=== PATIENT | male | born 1960 | race Caucasian/White ===

== ENCOUNTER 2021-06-26 04:32 | Observation (INO) | payer BC, SELFPAY ==
[2021-06-26] VITALS (11 sets, daily range): BP systolic 105–159; BP diastolic 53–99; PULSE 64–86; RESP 16–22; TEMP 36.6–36.9; O2SAT 88–94; BMI 40.6
--- NOTE | 2021-06-26 04:35 | XRR_ITS ---
PROCEDURE INFORMATION: Exam: XR Chest Exam date and time: 06/26/2021 4:35 AM Age: 61 years old Clinical indication: Cough and dyspnea and shortness of breath; Patient HX: Cough with SOB and dyspnea. Patient states history of cardiac valve leak. TECHNIQUE: Imaging protocol: XR of the chest. Views: 1 view. COMPARISON: No relevant prior studies available. FINDINGS: Lungs: No perihilar pulmonary edema. Patchy slight haziness laterally in the left mid lung and in the right lung base. Questionable minimal haziness laterally in the right upper lobe. No consolidation. Pleural spaces: No pneumothorax or apparent pleural fluid. Heart/Mediastinum: Cardiomegaly. Convexity of the left heart margin raising the possibility of left ventricular dilatation. No obvious left atrial enlargement. Vasculature: Descending aortic elongation. Diaphragm: Mild elevation of the right hemidiaphragm. Bones/joints: No suggestion of acute bony disease. XR/XR chest 1V portable [id number] IMPRESSION: 1. Patchy slight haziness laterally in the left mid lung and in the right lung base questionably due to minimal airspace disease and/or atelectasis. Minimal haziness in the lateral right upper lobe not excluded. 2. Cardiomegaly. Possible left ventricular dilatation. Other findings detailed above. Radiation Dose CTDIVOL = (mGy): DLP = (mGy-cm)
--- NOTE | 2021-06-26 05:09 | ED_ITS ---
Documented by User: Maryam Wakefield MD 06/26/21 05:56 HPI - General Adult General: Chief complaint: Weakness Stated complaint: weak, coughing, sob Time Seen by Provider: 06/26/21 04:37 History of Present Illness: HPI narrative: Patient is a 61-year-old male with no significant past medical history presents emergency room with complaints of cough, diarrhea, generalized weakness x3 days. Patient states that he has had chills at that time. Has not had any recent Covid test. No sick contacts around him. Patient denies any associated chest pain shortness breath, palpitation, nausea/vomiting, loss of taste/smell. Patient has no other focal complaints at this time. Onset: 3 days ago Duration:3 days Location:home Severity:mild/mderate Review of Systems Narrative: Constitutional: No fever, no chills. +generalized weakness HEENT: No vision changes CV: No chest pain, no palpitations PULM: +cough, no dyspnea. GI: No abdominal pain, -N/-V/+D. : No dysuria MSKEL: No muscle pain SKIN: No new rashes, no lesions. NEURO: No headache, no focal weakness. HEME: No visible bruises PSYCH: Normal mood PFSH ED PFSH: Medical History (Updated 06/29/21 @ 00:01 by ) Heart murmur Surgical History (Updated 06/26/21 @ 08:50 by Ajith Cesar MD) History of appendectomy Family History (Updated 06/26/21 @ 08:50 by Ajith Cesar MD) Other CAD (coronary artery disease) Diabetes Social History (Updated 10/27/19 @ 10:19 by Luna Fan LPN) Smoking and tobacco status: never smoked Alcohol intake: current Physical Exam Narrative: EXAM NARRATIVE: Head: Atraumatic Eyes: PERRL, conjunctiva without injection ENT: Mucous membrane moist NECK: Supple, ROM intact LUNGS: LCTAB, no crackles/rhonchi CV: RRR ABDOMEN: Soft, nontender in all quadrants EXTREMITY: Normal ROM SKIN: No rash or erythema NEURO: Awake and alert, no focal motor deficits PSYCH: Normal mood and affect Course Vital Signs: Vital signs: Vital Signs Temperature 98.1 F 06/28/21 13:17 Pulse Rate 68 06/28/21 13:17 Respiratory Rate 17 06/28/21 13:17 Blood Pressure 146/94 06/28/21 13:17 Pulse Oximetry 91 06/28/21 13:17 MDM - General Adult MDM Narrative: Medical decision making narrative: 61-year-old male presented to emergency room with complaints of cough, weakness, and diarrhea x3 days. Patient has not had any recent Covid test. On exam, patient is HDS. O2 sats of 90% on RA. Lungs clear to auscultation. Work-up: CBC, BMP, XR chest, Covid antigen/PCR Covid positive today. XR is consistent with mild PNa. Offered home O2 and discharge but patient declined and elected to stay. Given decadron 6mg and remdesivir Disposition: Admission Lab Data: Labs: Lab Results 06/26/21 06/26/21 06/26/21 05:18 05:18 05:18 WBC 4.8 10^3/uL 10^3/ uL (4.0-10.0) RBC 4.77 10^6/uL 10^6 /uL (4.1-5.3) Hgb 14.5 g/dL g/dL (11.7-16.6) Hct 41.3 % L % (42.0-52.0) MCV 86.6 fl fl (80-94) MCH 30.4 pg pg (28.0-34.0) MCHC 35.1 g/dL g/dL (30.0-36.0) RDW 11.9 % L % (12.1-15.1) Plt Count 154 10^3/cmm 10^3 /cmm (130-400) MPV 10.8 fL H fL (7.4-10.4) Neut % (Auto) 75.9 % % Lymph % (Auto) 18.9 % % [place] % (Auto) 4.8 % % Eos % (Auto) 0.0 % % Baso % (Auto) 0.0 % % Neut # (Auto) 3.66 10^3/uL 10^3 /uL (1.8-7.7) Lymph # (Auto) 0.9 10^3/uL 10^3/ uL (0.8-4.8) [place] # (Auto) 0.2 10^3/uL 10^3/ uL (0.2-0.9) Eos # (Auto) 0.0 10^3/uL 10^3/ uL (0.0-0.8) Baso # (Auto) 0.0 10^3/uL 10^3/ uL (0.0-0.1) Nucleated RBC % (a uto) 0 % % Nucleated RBCs # 0.0 /100WBC /100W BC D-Dimer Sodium 134 mmol/L L mmol /L (136-145) Potassium 3.3 mmol/L L mmol /L (3.5-5.1) Chloride 100 mmol/L mmol/L (98-107) Carbon Dioxide 18 mmol/L L mmol/ L (22-29) Anion Gap 19.3 H (5-19) BUN 10 mg/dL mg/dL (8-23) Creatinine 0.9 mg/dL mg/dL (0.7-1.2) GFR Calculation 85.8 mL/min L mL/ min (90-130) Glucose 113 mg/dL mg/dL (65-115) Calculated Osmolal ity 278 mOsm/kg L mOs m/kg (285-295) Calcium 7.7 mg/dL L mg/dL (8.5-10.5) C-Reactive Protein NT-Pro-B Natriuret Pep Nasal/Oral COVID-1 9 PCR Detected H SARS-CoV-2 Ag (Rap id) 06/26/21 06/26/21 06/26/21 05:18 05:18 05:18 WBC RBC Hgb Hct MCV MCH MCHC RDW Plt Count MPV Neut % (Auto) Lymph % (Auto) [place] % (Auto) Eos % (Auto) Baso % (Auto) Neut # (Auto) Lymph # (Auto) [place] # (Auto) Eos # (Auto) Baso # (Auto) Nucleated RBC % (a uto) Nucleated RBCs # D-Dimer 0.60 ug/mIFEU H u g/mIFEU (0-0.59) Sodium Potassium Chloride Carbon Dioxide Anion Gap BUN Creatinine GFR Calculation Glucose Calculated Osmolal ity Calcium C-Reactive Protein 101.2 mg/L H mg/L (0.0-4.9) NT-Pro-B Natriuret Pep Nasal/Oral COVID-1 9 PCR SARS-CoV-2 Ag (Rap id) Positive H (Negative) 06/26/21 05:18 WBC RBC Hgb Hct MCV MCH MCHC RDW Plt Count MPV Neut % (Auto) Lymph % (Auto) [place] % (Auto) Eos % (Auto) Baso % (Auto) Neut # (Auto) Lymph # (Auto) [place] # (Auto) Eos # (Auto) Baso # (Auto) Nucleated RBC % (a uto) Nucleated RBCs # D-Dimer Sodium Potassium Chloride Carbon Dioxide Anion Gap BUN Creatinine GFR Calculation Glucose Calculated Osmolal ity Calcium C-Reactive Protein NT-Pro-B Natriuret Pep 73 pg/mL pg/mL (0-125) Nasal/Oral COVID-1 9 PCR SARS-CoV-2 Ag (Rap id) Imaging Data^: Other Imaging: Radiologist's impression: [employer] [id number] ReportSigned Patient: Jaime Carson #: [id number]: 1960Acct#:[id number]/Sex: 61 / MADM Date: 06/26/21Loc: ERRoom/Bed:Attending Dr: Ordering Provider/Ordering MD: Maryam Wakefield MD Date of Service: 06/26/21 Procedure(s): XR chest 1V portable [id number] Accession Number(s): [id number] Report Number: [id number] PROCEDURE INFORMATION: Exam: XR Chest Exam date and time: 06/26/2021 4:35 AM Age: 61 years old Clinical indication: Cough and dyspnea and shortness of breath; Patient HX: Cough with SOB and dyspnea. Patient states history of cardiac valve leak. TECHNIQUE: Imaging protocol: XR of the chest. Views: 1 view. COMPARISON: No relevant prior studies available. FINDINGS: Lungs: No perihilar pulmonary edema. Patchy slight haziness laterally in the left mid lung and in the right lung base. Questionable minimal haziness laterally in the right upper lobe. No consolidation. Pleural spaces: No pneumothorax or apparent pleural fluid. Heart/Mediastinum: Cardiomegaly. Convexity of the left heart margin raising the possibility of left ventricular dilatation. No obvious left atrial enlargement. Vasculature: Descending aortic elongation. Diaphragm: Mild elevation of the right hemidiaphragm. Bones/joints: No suggestion of acute bony disease. XR/XR chest 1V portable [id number] IMPRESSION: 1. Patchy slight haziness laterally in the left mid lung and in the right lung base questionably due to minimal airspace disease and/or atelectasis. Minimal haziness in the lateral right upper lobe not excluded. 2. Cardiomegaly. Possible left ventricular dilatation. Other findings detailed above. Radiation Dose CTDIVOL = (mGy): DLP = (mGy-cm) Dictated By:Beth Mcnamara MDSigned By:Beth Mcnamara MDSigned Date/Time:06/26/21529DD/ Discharge Plan Discharge Patient Disposition: Admitted As Inpatient Admit Provider: Kira Bhatt Clinical Impression: Cough, Generalized weakness, Diarrhea, COVID Condition: Stable Discharge Diet: Advance as tolerated Discharge Activity: Resume usual activity Coding Level of Care Code ED End User Support Specialist for Chg Fwd Documented by User: Edgar Cosme DO 07/03/21 07:49 HPI - General Adult General: Chief complaint: Weakness Stated complaint: weak, coughing, sob Time Seen by Provider: 06/26/21 04:37 [facility] ED PFSH: Medical History (Updated 06/29/21 @ 00:01 by ) Heart murmur Surgical History (Updated 06/26/21 @ 08:50 by Ajith Cesar MD) History of appendectomy Family History (Updated 06/26/21 @ 08:50 by Ajith Cesar MD) Other CAD (coronary artery disease) Diabetes Social History (Updated 10/27/19 @ 10:19 by Luna Fan LPN) Smoking and tobacco status: never smoked Alcohol intake: current Course Vital Signs: Vital signs: Vital Signs Temperature 98.1 F 06/28/21 13:17 Pulse Rate 68 06/28/21 13:17 Respiratory Rate 17 06/28/21 13:17 Blood Pressure 146/94 06/28/21 13:17 Pulse Oximetry 91 06/28/21 13:17 MDM - General Adult MDM Narrative: Medical decision making narrative: Care assumed from Dr. Wakefield at change of shift. 88% on room air. After discussion with patient will go ahead and admit for Covid pneumonitis. Hospitalist made aware. Lab Data: Labs: Lab Results 06/26/21 06/26/21 06/26/21 05:18 05:18 05:18 WBC 4.8 10^3/uL 10^3/ uL (4.0-10.0) RBC 4.77 10^6/uL 10^6 /uL (4.1-5.3) Hgb 14.5 g/dL g/dL (11.7-16.6) Hct 41.3 % L % (42.0-52.0) MCV 86.6 fl fl (80-94) MCH 30.4 pg pg (28.0-34.0) MCHC 35.1 g/dL g/dL (30.0-36.0) RDW 11.9 % L % (12.1-15.1) Plt Count 154 10^3/cmm 10^3 /cmm (130-400) MPV 10.8 fL H fL (7.4-10.4) Neut % (Auto) 75.9 % % Lymph % (Auto) 18.9 % % [place] % (Auto) 4.8 % % Eos % (Auto) 0.0 % % Baso % (Auto) 0.0 % % Neut # (Auto) 3.66 10^3/uL 10^3 /uL (1.8-7.7) Lymph # (Auto) 0.9 10^3/uL 10^3/ uL (0.8-4.8) [place] # (Auto) 0.2 10^3/uL 10^3/ uL (0.2-0.9) Eos # (Auto) 0.0 10^3/uL 10^3/ uL (0.0-0.8) Baso # (Auto) 0.0 10^3/uL 10^3/ uL (0.0-0.1) Nucleated RBC % (a uto) 0 % % Nucleated RBCs # 0.0 /100WBC /100W BC D-Dimer Sodium 134 mmol/L L mmol /L (136-145) Potassium 3.3 mmol/L L mmol /L (3.5-5.1) Chloride 100 mmol/L mmol/L (98-107) Carbon Dioxide 18 mmol/L L mmol/ L (22-29) Anion Gap 19.3 H (5-19) BUN 10 mg/dL mg/dL (8-23) Creatinine 0.9 mg/dL mg/dL (0.7-1.2) GFR Calculation 85.8 mL/min L mL/ min (90-130) Glucose 113 mg/dL mg/dL (65-115) Calculated Osmolal ity 278 mOsm/kg L mOs m/kg (285-295) Calcium 7.7 mg/dL L mg/dL (8.5-10.5) C-Reactive Protein NT-Pro-B Natriuret Pep Nasal/Oral COVID-1 9 PCR Detected H SARS-CoV-2 Ag (Rap id) 06/26/21 06/26/21 06/26/21 05:18 05:18 05:18 WBC RBC Hgb Hct MCV MCH MCHC RDW Plt Count MPV Neut % (Auto) Lymph % (Auto) [place] % (Auto) Eos % (Auto) Baso % (Auto) Neut # (Auto) Lymph # (Auto) [place] # (Auto) Eos # (Auto) Baso # (Auto) Nucleated RBC % (a uto) Nucleated RBCs # D-Dimer 0.60 ug/mIFEU H u g/mIFEU (0-0.59) Sodium Potassium Chloride Carbon Dioxide Anion Gap BUN Creatinine GFR Calculation Glucose Calculated Osmolal ity Calcium C-Reactive Protein 101.2 mg/L H mg/L (0.0-4.9) NT-Pro-B Natriuret Pep Nasal/Oral COVID-1 9 PCR SARS-CoV-2 Ag (Rap id) Positive H (Negative) 06/26/21 05:18 WBC RBC Hgb Hct MCV MCH MCHC RDW Plt Count MPV Neut % (Auto) Lymph % (Auto) [place] % (Auto) Eos % (Auto) Baso % (Auto) Neut # (Auto) Lymph # (Auto) [place] # (Auto) Eos # (Auto) Baso # (Auto) Nucleated RBC % (a uto) Nucleated RBCs # D-Dimer Sodium Potassium Chloride Carbon Dioxide Anion Gap BUN Creatinine GFR Calculation Glucose Calculated Osmolal ity Calcium C-Reactive Protein NT-Pro-B Natriuret Pep 73 pg/mL pg/mL (0-125) Nasal/Oral COVID-1 9 PCR SARS-CoV-2 Ag (Rap id) Discharge Plan Discharge Patient Disposition: Admitted As Inpatient Admit Provider: Kira Bhatt Clinical Impression: Cough, Generalized weakness, Diarrhea, COVID Condition: Stable Discharge Diet: Advance as tolerated Discharge Activity: Resume usual activity Coding Level of Care Code ED End User Support Specialist for Rosendog Peyton
[2021-06-26 05:26] LABS: Hematocrit 41.3 % (42.0-52.0); Hemoglobin 14.5 g/dL (11.7-16.6); Lymphocytes # 0.9 10^3/uL (0.8-4.8); Lymphocytes % 18.9 %; Mean Corpuscular HGB Conc 35.1 g/dL (30.0-36.0); Mean Corpuscular Hemoglobin 30.4 pg (28.0-34.0); Mean Corpuscular Volume 86.6 fl (80-94); Mean Platelet Volume 10.8 fL (7.4-10.4); Monocytes # 0.2 10^3/uL (0.2-0.9); Monocytes % 4.8 %; Neutrophils # 3.66 10^3/uL (1.8-7.7); Neutrophils % 75.9 %; Nucleated Red Blood Cells % 0 %; Platelet Count 154 10^3/cmm (130-400); Red Blood Count 4.77 10^6/uL (4.1-5.3); Red Cell Distribution Width 11.9 % (12.1-15.1); White Blood Count 4.8 10^3/uL (4.0-10.0)
[2021-06-26 05:48] LABS: SARS Covid-2 Antigen Positive (Negative)
[2021-06-26 05:50] LABS: Anion Gap 19.3 (5-19); Blood Urea Nitrogen 10 mg/dL (8-23); Calcium 7.7 mg/dL (8.5-10.5); Carbon Dioxide 18 mmol/L (22-29); Chloride 100 mmol/L (98-107); Glomerular Filtration Rate 85.8 mL/min (90-130); Glucose 113 mg/dL (65-115); Osmolality Calculated 278 mOsm/kg (285-295); Potassium 3.3 mmol/L (3.5-5.1); Sodium 134 mmol/L (136-145)
[2021-06-26] MEDS: dexamethasone 10 mg/mL INJ 6 MG IVP (05:55)
[2021-06-26] MEDS: acetaminophen 500 mg Tablet PO (05:57)
[2021-06-26] MEDS: remdesivir 200 MG in sodium chloride 0.9% (100 ml) 60 ML 100 MG IV (06:57)
[2021-06-26 07:14] LABS: C Reactive Protein 101.2 mg/L (0.0-4.9)
--- NOTE | 2021-06-26 07:14 | CT_ITS ---
WS: [id number] CT CHEST ANGIOGRAPHY WITH REFORMATS HISTORY: Elevated D dimer, COVID TECHNIQUE: Contiguous axial images are obtained through the chest during arterial injection of intrav enous contrast. Images are reconstructed to evaluate the pulmonary arteries. MIP imaging also reviewe d. All CT scans at [facility] use at least one of these dose optimization techniques: automat ed exposure control; mA and/or kV adjustment per patient size (includes targeted exams where dose is matched to clinical indication); or iterative reconstruction. CONTRAST: Omnipaque 350; 84 mL IV. DLP: 618.72 mGy.cm COMPARISON: 10/05/[address] Adequate opacification of the pulmonary arteries. No filling defects are present within the pulmonary arteries at least to the segmental branches. Opacification becomes suboptimal distally. Normal size pulmonary artery. Normal size aorta. Mild enlargement LEFT heart. No pericardial effusion or RIGHT he art strain. LEFT atrial appendage is clear. There are scattered peripheral groundglass consolidations and more focal consolidations throughout chalino th lungs. Cyst with Covid 19. No effusion. No pneumothorax or pneumomediastinum. No adenopathy. Thyroid gland is enlarged and substernal. Small hiatal hernia. Severe hepatic steatosis. No adrenal m ass. No destructive bone lesions. CT/CT angio chest PE protcl [id number] IMPRESSION: 1. No pulmonary embolism. 2. Multilobar peripheral opacifications consistent with pneumonitis secondary to Covid 19. 3. No RIGHT heart strain. 4. Marked hepatic steatosis.
--- NOTE | 2021-06-26 07:40 | ECG_ITS ---
[facility] Test Date: 2021-06-26 Pat Name: Jaime Carson Department: Room: 279 Gender: Male Outside Sales Engineer: : 1960 Requested By: Ajith Lindo Order Number: [id number] Nereyda MD: Ayanna Santacruz M.D. Measurements Intervals [place] Rate: 70 P: 53 NE: 169 QRS: -30 QRSD: 93 T: -3 QT: 399 QTc: 432 Interpretive Statements SINUS RHYTHM BORDERLINE LEFT AXIS DEVIATION [QRS AXIS < -20] No previous ECG available for comparison Electronically Signed On 06-26-2021 16:15:11 BASS GUITAR TEACHER by Ayanna Santacruz M.D. [id number]
--- NOTE | 2021-06-26 07:42 | PC.PHAR ---
pt states he takes no rx medications no meds pull up on ext med history
[2021-06-26] MEDS: iohexol 350 mg/mL 100 mL Btl IV (08:10)
[2021-06-26 08:23] LABS: NT Pro B Type Natriuretic Pept 73 pg/mL (0-125)
--- NOTE | 2021-06-26 08:46 | P.HP_ITS ---
Providers/Chief Complaint Admitting Physician: Kira Bhatt MD Primary Care Provider: Rocky Hernandez MD Chief Complaint: weak, coughing, sob History of Present Illness Jaime Carson is a 61 year old male who presents to the hospital with 6 days of cough, nasal congestion, and progressive shortness of breath. He denies any ill contacts with Covid. He has not had fever, nausea or vomiting. He has had anorexia, and has not eaten much in the last 4 to 5 days. In the emergency department he was diagnosed with Covid, with a rapid test. Remdesivir and dexamethasone were initiated. He required 2 L of oxygen. He has been severely tired. Review of Systems General: Reports: 10 or more systems reviewed and unremarkable except in HPI and below Const: Reports: fatigue and malaise; Denies: fever(s) or chills Eyes: Denies: change in vision ENMT: Denies: throat pain Card: Denies: chest pain Resp: Reports: dyspnea and productive cough GI: Denies: abdominal pain, nausea, vomiting, hematochezia or melena : Denies: flank pain Musc: Denies: neck pain Skin/Breast: Denies: rash Neuro: Denies: headache(s) Psych: Denies: anxiety or depression Endo: Denies: polyuria Félix/Lymph: Denies: easy bruising All/Imm: Denies: urticaria Medications/Allergies Home Medications Medication Instructions Recorded Confirmed Last Taken Type acetaminophen 500 mg PO Q6H PRN 5 Days #20 tab 06/26/21 Unknown Rx dextromethorphan-guaifenesin 1 tab PO Q12H 06/26/21 06/26/21 06/25/21 History [Mucinex DM] qydseptpm-ZIF-NV-acetaminophen 30 ml PO BEDTIME PRN 06/26/21 06/26/21 06/22/21 History [NyQuil] Allergies Allergy/AdvReac Type Severity Reaction Status Date / Time No Known Allergies Allergy Verified 06/26/21 07:41 PFSH Acute PFSH: Medical History (Updated 06/26/21 @ 08:53 by Ajith Cesar MD) Heart murmur Surgical History (Updated 06/26/21 @ 08:50 by Ajith Cesar MD) History of appendectomy Family History (Updated 06/26/21 @ 08:50 by Ajith Cesar MD) Other CAD (coronary artery disease) Diabetes Social History (Updated 10/27/19 @ 10:19 by Luna Fan LPN) Smoking and tobacco status: never smoked Alcohol intake: current Vitals/I&O/Wt Last Vital Signs Temp 97.8 F 06/26/21 04:41 Pulse 86 06/26/21 05:42 Resp 22 H 06/26/21 05:42 BP 105/53 06/26/21 05:42 Pulse Ox 91 06/26/21 05:42 06/25/21 06/26/21 06/26/21 22:59 06:59 14:59 Intake Total 60 / 60 Balance 60 / 60 Weight last 48 hrs Weight 136.078 kg Physical Exam Narrative: EXAM NARRATIVE: General exam is a white male, no distress HEENT: Pupils equally round. Oropharynx clear. Neck is supple no lymphadenopathy or thyromegaly Cardiovascular regular rhythm. I do not auscultate a murmur. Lungs clear no wheezing or crackles Abdomen soft, positive bowel sounds. No obvious organomegaly exam is deferred Extremities no cyanosis clubbing or edema, cap refill brisk Skin no rash Neuro no focal deficits Data : 06/26/21 05:18 06/26/21 05:18 Other data: Dimer 0.6 BNP 73 CRP 101 Rapid Covid positive, PCR pending Chest x-ray patchy infiltrates consistent with Covid, cardiomegaly CTA no pulmonary embolism. Fatty liver, peripheral infiltrates consistent with Covid A&P Assessment and plan (1) COVID: Patient is Covid pneumonia, associated with hypoxia. He is requiring 2 L of oxygen. Remdesivir initiated Dexamethasone initiated Rocephin empirically Pulmonary toilet with DuoNeb, budesonide If rapidly worsens, with elevated CRP consider Actemra Check procalcitonin Status: Acute (2) Hypokalemia: Supplement, repeat in the morning Status: Acute (3) Elevated d-dimer: CTA demonstrated no pulmonary embolism Status: Acute Additional A&P Information Full code Lovenox for DVT prophylaxis Attestations Medical Necessity Statement*: May need less than 2 midnight stay for evaluation of COVID-19 pneumonia with hypoxia Time Spent in Patient Care: Greater than 35 minutes Coding Level of Care Code Acute Fishing Rod Mechanic for Chg Fwd Diagnoses COVID U07.1 Hypokalemia E87.6 Elevated d-dimer R79.89
[2021-06-26] MEDS: ipratropium-albuterol 3 mL Neb INHALATION ×3 (09:28→21:17)
[2021-06-26] MEDS: budesonide 0.5 mg/2 mL Neb INHALATION ×2 (09:28→21:17)
[2021-06-26] MEDS: potassium chloride ER 20 mEq Tablet 40 MEQ PO (10:00)
[2021-06-26] MEDS: benzonatate 100 mg Capsule PO (10:00)
[2021-06-26] MEDS: cefTRIAXone 1,000 MG in sodium chloride 0.9% (plus) 50 ML 100 MG IV (10:01)
[2021-06-26] MEDS: enoxaparin 40 mg/0.4 mL Syringe SUBCUT (11:35)
--- NOTE | 2021-06-26 13:44 | PC.CHAP ---
Pastoral Care Encounter/Spiritual Assessment Type of Contact [] Declined community relations officer visit [] Patient/Family/Request visit [] Outpatient visit [] Follow-up visit [] Physician referral [] Code/Alert [] Routine visit [] Staff referral [] Actively dying [] Patient sleeping [] Family support [] [] Out of room [] Palliative care [] [] Receiving care in room [] Pre-surgical visit [] Trauma [] Long length of stay [] ICU visit [xx] Other: ISOLATION Relational/Emotional Strength [] Patient feels connected with others/family/visitors/staff [] Distress [] Loneliness/isolation [] Abandonment Spirituality of Patient [] Person of Zahra [] Attends Congregation of their Zahra [] Believes in Prayer [] Reads Bible or Latter-Day materials [] There are Spiritual issues to be addressed Supervisor Twisting Department Interventions [] Prayer [] Active listening [] Non-anxious presence [] Spiritual/emotional support [] Crisis/trauma care [] Spiritual counseling [] Bereavement support [] Provided bereavement packet [] Provided Bible/devotional materials [] Provided toy/stuffed animal, coloring book to patient or family member [] Provided Communion [] Anointing/[place] [] Salvation [] Completed spiritual assessment [] Other: Impact on Illness or Injury [] Angry [] Fearful [] Anxious [] Often cries [] Exhaustion [] Unable to work [] Unable to attend yarsanism [] Unable to walk/stand [] Unable to read [] Unable to drive [] Unable to eat/drink [] Unable to sleep [] Unable to be with family [] Patient intubated [] Other: Summary Time spent with patient
[2021-06-26 14:47] LABS: Coronavirus Test Green County Detected
--- NOTE | 2021-06-26 16:27 | PC.SOCIAL ---
pt didnt trigger
[2021-06-27] VITALS (14 sets, daily range): BP systolic 127–186; BP diastolic 79–90; PULSE 57–87; RESP 16–20; TEMP 36.8–37.1; O2SAT 90–96
[2021-06-27] MEDS: ipratropium-albuterol 3 mL Neb INHALATION ×4 (02:48→20:58)
[2021-06-27 05:29] LABS: Basophils % 0.2 %; Hematocrit 42.5 % (42.0-52.0); Hemoglobin 14.4 g/dL (11.7-16.6); Lymphocytes # 0.8 10^3/uL (0.8-4.8); Lymphocytes % 14.8 %; Mean Corpuscular HGB Conc 33.9 g/dL (30.0-36.0); Mean Corpuscular Hemoglobin 30.3 pg (28.0-34.0); Mean Corpuscular Volume 89.5 fl (80-94); Mean Platelet Volume 10.7 fL (7.4-10.4); Monocytes # 0.2 10^3/uL (0.2-0.9); Monocytes % 4.1 %; Neutrophils # 4.27 10^3/uL (1.8-7.7); Neutrophils % 80.3 %; Nucleated Red Blood Cells % 0 %; Platelet Count 185 10^3/cmm (130-400); Red Blood Count 4.75 10^6/uL (4.1-5.3); Red Cell Distribution Width 11.9 % (12.1-15.1); White Blood Count 5.3 10^3/uL (4.0-10.0)
[2021-06-27 05:53] LABS: Alanine Aminotransferase 101 U/L (0-41); Albumin Level 3.7 g/dL (3.5-5.2); Alkaline Phosphatase 75 IU/L (40-130); Anion Gap 19.4 (5-19); Aspartate Amino Transferase 99 U/L (0-40); Blood Urea Nitrogen 15 mg/dL (8-23); Calcium 8.3 mg/dL (8.5-10.5); Carbon Dioxide 20 mmol/L (22-29); Chloride 99 mmol/L (98-107); Globulin 3.2 g/dL (1.3-4.6); Glomerular Filtration Rate 85.8 mL/min (90-130); Glucose 111 mg/dL (65-115); Osmolality Calculated 282 mOsm/kg (285-295); Potassium 3.4 mmol/L (3.5-5.1); Sodium 135 mmol/L (136-145); Total Bilirubin 0.6 mg/dL (0.15-1.2); Total Protein 6.9 g/dL (6.6-8.7)
[2021-06-27 06:02] LABS: Procalcitonin 0.08 ng/mL (0-0.5)
[2021-06-27] MEDS: remdesivir 100 MG in sodium chloride 0.9% (100 ml) 100 ML IV (08:20)
[2021-06-27] MEDS: budesonide 0.5 mg/2 mL Neb INHALATION ×2 (08:51→20:58)
[2021-06-27] MEDS: cefTRIAXone 1,000 MG in sodium chloride 0.9% (plus) 50 ML 100 MG IV (09:32)
[2021-06-27] MEDS: dexamethasone 4 mg/mL INJ 6 MG IVP (09:32)
[2021-06-27] MEDS: acetaminophen 325 mg Tablet 650 MG PO (09:45)
[2021-06-27] MEDS: enoxaparin 40 mg/0.4 mL Syringe SUBCUT (10:04)
[2021-06-27 11:21] LABS: C Reactive Protein 114.2 mg/L (0.0-4.9)
--- NOTE | 2021-06-27 16:39 | P.PN_ITS ---
Subjective Subjective: Interval history: pt is doing well on 3 to nasal cannula Endorsing shortness of breath on exertion, has been afebrile, endorsing feeling slightly better No overnight events Vitals/I&O/Wt Last Vital Signs Temp 98.4 F 06/27/21 15:14 Pulse 68 06/27/21 15:14 Resp 16 06/27/21 15:14 BP 133/83 06/27/21 15:14 Pulse Ox 91 06/27/21 15:14 06/27/21 06/27/21 06/27/21 06:59 14:59 22:59 Intake Total 1000 / 1610 510 / 510 Balance 1000 / 1610 510 / 510 Weight last 48 hrs Weight 136.078 kg Weight 136.078 kg Physical Exam Narrative: EXAM NARRATIVE: Patient was laying supine Doing well on 2 L nasal cannula Endorsing dry cough Bilateral basilar without adventitious rhonchi or crackles S1, S2 Distended abdomen nontender visceral obesity EOMI, PERRLA Nonfocal exam Clinical looks euvolemic Data : 06/27/21 05:11 06/27/21 05:11 A&P Assessment and plan (1) Cough: Status: Acute (2) Generalized weakness: Status: Acute (3) Diarrhea: Status: Acute (4) COVID: Status: Acute (5) Hypokalemia: Status: Acute (6) Elevated d-dimer: Status: Acute Additional A&P Information COVID-19 related hypoxia Continue IV Decadron and steroids Currently and doing well on 3 L nasal cannula Plan to discharge him tomorrow No signs of PE high D-dimer Hypokalemia: Repleted Diarrhea has slightly improved Endorsing fatigue and lethargy We will do home O2 evaluation tomorrow Regular diet DVT prophylaxis on board Attestations Medical Necessity Statement*: Anticipating discharge tomorrow Time Spent in Patient Care: less than 15 minutes Coding Level of Care Code Acute Dialysis Chief Equipment Technician for Chg Fwd Diagnoses Cough R05.9 Generalized weakness R53.1 Diarrhea R19.7 COVID U07.1 Hypokalemia E87.6 Elevated d-dimer R79.89
[2021-06-27] MEDS: potassium chloride ER 20 mEq Tablet 40 MEQ PO (17:04)
[2021-06-28] VITALS (9 sets, daily range): BP systolic 133–160; BP diastolic 81–96; PULSE 56–68; RESP 16–20; TEMP 36.7–37; O2SAT 87–97
[2021-06-28] MEDS: ipratropium-albuterol 3 mL Neb INHALATION ×2 (02:59→08:07)
[2021-06-28] MEDS: remdesivir 100 MG in sodium chloride 0.9% (100 ml) 100 ML IV (06:18)
[2021-06-28 06:50] LABS: Anion Gap 17.8 (5-19); Blood Urea Nitrogen 15 mg/dL (8-23); Calcium 8.5 mg/dL (8.5-10.5); Carbon Dioxide 21 mmol/L (22-29); Chloride 100 mmol/L (98-107); Glomerular Filtration Rate 98.3 mL/min (90-130); Glucose 150 mg/dL (65-115); Osmolality Calculated 284 mOsm/kg (285-295); Potassium 3.8 mmol/L (3.5-5.1); Sodium 135 mmol/L (136-145)
[2021-06-28] MEDS: budesonide 0.5 mg/2 mL Neb INHALATION (08:07)
[2021-06-28] MEDS: dexamethasone 4 mg/mL INJ 6 MG IVP (08:23)
--- NOTE | 2021-06-28 11:55 | P.DS_ITS ---
Discharge Providers Date of Admission: 06/26/21 09:39 Date of Discharge: June 28, 2021 Attending Provider at Admission: Kira Bhatt MD Attending Provider at Discharge: Raad Thibodeaux MD Primary Care Provider: Rocky Hernandez MD Diagnoses at Discharge Discharge Diagnosis (1) Cough: Status: Acute (2) Generalized weakness: Status: Acute (3) Diarrhea: Status: Acute (4) COVID: Status: Acute (5) Hypokalemia: Status: Acute (6) Elevated d-dimer: Status: Acute Reason for Visit Reason for Visit: weak, coughing, sob Hospital Course Hospital Course History of Present Illness by Dr. Cesar Jaime Carson is a 61 year old male who presents to the hospital with 6 days of cough, nasal congestion, and progressive shortness of breath. He denies any ill contacts with Covid. He has not had fever, nausea or vomiting. He has had anorexia, and has not eaten much in the last 4 to 5 days. In the emergency department he was diagnosed with Covid, with a rapid test. Remdesivir and dexamethasone were initiated. He required 2 L of oxygen. He has been severely tired Hospital course Patient was admitted for management of hypoxic respiratory failure related to COVID-19. His clinical course was noncomplicated. He did well on 2 to 3 L nasal cannula, remained afebrile, no extreme worsening of leukocytosis, his fatigue and lethargy persisted but however he was able to ambulate and go to the bathroom on his own. Did receive IV steroids and remdesivir. He also received empirical antibiotics which were discontinued. He qualified for 3 L of oxygen at the time of discharge. He was counseled about the quantity of quarantine days and get vaccination 90 days after his infection. Physical Exam Narrative: EXAM NARRATIVE: Patient was laying supine Doing well on 2 L nasal cannula Endorsing dry cough Bilateral basilar without adventitious rhonchi or crackles S1, S2 Distended abdomen nontender visceral obesity EOMI, PERRLA Nonfocal exam Clinical looks euvolemic Discharge Data Data Completed and Pending: Completed Studies During Hospitalization Category Date Time Status CT angio chest PE protcl [id number] Rout ine Cat Scan 06/26/21 07:14 Completed XR chest 1V fausto ble [id number] Urgent Exams 06/26/21 04:35 Completed Labs from last 24 hours 06/28/21 05:15 Sodium 135 L Potassium 3.8 Chloride 100 Carbon Dioxide 21 L Anion Gap 17.8 BUN 15 Creatinine 0.8 GFR Calculation 98.3 Glucose 150 H Calculated Osmolal ity 284 L Calcium 8.5 Vitals: Last Vital Signs Temp 98.4 F 06/28/21 08:00 Pulse 60 06/28/21 08:18 Resp 20 H 06/28/21 08:18 BP 160/96 06/28/21 08:00 Pulse Ox 87 L 06/28/21 11:23 Discharge Plan Discharge Patient Disposition: Home Condition: Stable Prescriptions: New acetaminophen 500 mg tablet 500 mg PO Q6H PRN (Reason: pain) 5 Days Qty: 20 RF: 0 benzonatate 100 mg Capsule 100 mg PO TID PRN (Reason: Cough) Qty: 90 RF: 3 albuterol sulfate 90 mcg/actuation HFA aerosol inhaler 1 inh inhalation Q6H PRN (Reason: shortness of breath or wheezing) Qty: 8.5 RF: 1 Continued agacmelbj-SIW-CQ-acetaminophen 7.5-60-30-1,000 mg/30 mL Liquid 30 ml PO BEDTIME PRN (Reason: Sleep) RF: 0 Mucinex DM 30-600 mg Tablet Extended Release 12 Hr 1 tab PO Q12H RF: 0 Discharge Orders: Discharge Order (Routine); Ordered 06/28/21 Ordered By: Raad Thibodeaux Other Ambulatory Orders: DME: Oxygen (Order) Location: None Selected Ordered By: Raad Thibodeaux Referrals: [facility], [place] [Outside] Rocky Hernandez MD [Primary Care Provider] - (Please call [facility] on Tuesday morning and schedule an appointment to be seen within 10 days. ) Discharge Diet: Advance as tolerated Discharge Activity: Resume usual activity Patient Instructions: Benzonatate (By mouth), Acetaminophen (By mouth), Albuterol (By breathing) (ProAir, AccuNeb, Proventil, Proventil..., Hypokalemia (DC), COVID-19 (Coronavirus Disease 2019) (ED), Opioid Safety Activity Restrictions/Additional Instructions: Come back to the emergency room if your symptoms worsen, have any shortness of breath, fever/chills, dehydration, inability tolerate p.o., any difficulty breathing, or any new or concerning complaints. Discharge Attestations Time Spent in Discharge Care*: less than 30 min Quality Metrics Clinical Quality Measures During this hospital stay, did patient experience: None Coding Level of Care Code Acute Chg FW LA note Diagnoses Cough R05.9 Generalized weakness R53.1 Diarrhea R19.7 COVID U07.1 Hypokalemia E87.6 Elevated d-dimer R79.89
--- NOTE | 2021-06-28 13:01 | PC.NURSE ---
Addendum entered by Casandra Kilgore RN 06/28/21 13:16: patients home portable has been delivered by [employer]. Original Note: Patient verbalizes understanding of discharge instructions instructions, home medications, and follow up appointments.
== END 2021-06-28 13:17 | disposition home or self-care (01) ==
LOC: ER 06:20 → MEDSURG 07:23
PROVIDERS: Family Medicine; Internal Medicine; Admitting Provider Student in an Organized Health Care Education/Training Program; Emergency Provider Emergency Medicine; PCP Family Medicine; Visit Provider Internal Medicine
DX: U07.1 COVID-19 (principal); J12.82 Pneumonia due to coronavirus disease 2019; E87.6 Hypokalemia; R79.89 Other specified abnormal findings of blood chemistry; R05.9 Cough, unspecified; R53.1 Weakness; R19.7 Diarrhea, unspecified; E66.9 Obesity, unspecified; Z68.41 Body mass index [BMI] 40.0-44.9, adult
CPT/HCPCS: 36415; 71045; 71275; 80048; 80053; 83880; 84145; 85025; 85378; 86140; 87426; 87635; 93005; 94640; 94760; 96365; 96367; 96372; 96375; 99285; G0378; J0696; J1100; J1650; J7626; Q9967

== ENCOUNTER 2022-05-18 16:05 | Emergency (ER) | payer BC, OTHER, SELFPAY ==
[2022-05-18 16:39] VITALS: BP 200/113; PULSE 92; RESP 18; TEMP 36.8; O2SAT 96; BMI 40.6
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
[2022-05-18] MEDS: ondansetron 4 MG Tablet PO (19:02)
[2022-05-18] MEDS: HYDROcodone-acetaminophen 7.5-325 mg Tablet 1 TAB PO (19:02)
[2022-05-18 19:57] VITALS: BP 169/105; PULSE 91; RESP 18; TEMP 36.8; O2SAT 98
== END 2022-05-18 19:58 | disposition home or self-care (01) ==
PROVIDERS: Emergency Provider Nurse Practitioner Family; PCP Family Medicine
DX: S39.012A Strain of muscle, fascia and tendon of lower back, initial encounter (principal); S16.1XXA Strain of muscle, fascia and tendon at neck level, initial encounter; M25.511 Pain in right shoulder; S80.819A Abrasion, unspecified lower leg, initial encounter; V53.5XXA Driver of pick-up truck or van injured in collision with car, pick-up truck or van in traffic accident, initial encounter
CPT/HCPCS: 70450; 72072; 72100; 72125; 73030; 73590; 99285; Q0162

== ENCOUNTER 2022-06-10 06:56 | Outpatient (CLI) | payer BC, SELFPAY ==
--- NOTE | 2022-06-10 07:15 | MR_ITS ---
WS: [id number] MRI BRAIN WITH AND WITHOUT CONTRAST HISTORY: post concussion syndrome with worsening symptoms/ headaches/ COMPARISON: None available. TECHNIQUE: Multiplanar imaging performed through the brain with MultiHance 20 ml's IV. No acute infarcts are seen. Eid-white matter differentiation is well preserved. Numerous T2 and FLAI R signal hyperintensities scattered throughout the subcortical and periventricular white matter. No p rior infarct. No susceptibility artifacts or prior lacunar infarcts. Ventricles and extra-axial spaces are normal. Clivus and pituitary gland are normal. Visualized posterior fossa and brainstem are also normal. Postcontrast images are negative for masses or vascular malformations. Dural venous sinuses are normal. Paranasal sinuses: Well aerated with no significant disease. Mastoid air cells: Normal. Calvarium and scalp: Normal. MR/MR head wo/w con [id number] IMPRESSION: 1. No acute infarct, hemorrhage or mass. 2. Moderate small vessel ischemic type changes. 3. No significant atrophy and no prior infarct.
[2022-06-10] MEDS: gadobenate dimeglumine 20 mL vial IV (07:49)
== END 2022-06-10 06:57 | disposition home or self-care (01) ==
PROVIDERS: PCP Family Medicine; Visit Provider Family Medicine
DX: F07.81 Postconcussional syndrome (principal); R51.9 Headache, unspecified
CPT/HCPCS: 70553

== ENCOUNTER 2022-06-11 15:13 | Outpatient (CLI) | payer BC, SELFPAY ==
--- NOTE | 2022-06-11 16:30 | US_ITS ---
WS: [id number] Exam: US thyroid [id number] Date/Time of Exam: 06/11/2022 3:16 PM Reason For Exam: nodule on CT Evaluation of the left thyroid lobe shows a very prominent isoechoic nodule at midpole measuring 1.2 x 1.72 x 1.75 cm. Coarse calcification associated with the nodule. This occupies the mid and lower po le. The left lobe measures 4.93 x 1.98 x 1.86 cm. Evaluation of the right lobe shows a small heteroge neous solid nodule at mid pole measuring 0.5 0.43 x 0.55 cm. This does not have suspicious appearance . The right lobe measures 5 x 1.37 x 2 cm. The thyroid isthmus measures 4.7 mm at greatest thickness. Recommendations: Fine-needle aspiration biopsy of the left thyroid lobe. US/US thyroid [id number] IMPRESSION: 1. Ill-defined 1.2 x 1.72 x 1.75 cm lesion in the mid and lower left thyroid lo be that is indeterminate. Biopsy is recommended based on size criteria. 2. 0.5 x 0.43 x 0.55 cm nodule in the mid pole the right thyroid lobe which harley s not have suspicious appearance. 3. Enlargement of both thyroid lobes and the thyroid isthmus.
== END 2022-06-11 15:14 | disposition home or self-care (01) ==
PROVIDERS: PCP Family Medicine; Visit Provider Family Medicine
DX: E04.1 Nontoxic single thyroid nodule (principal); E04.9 Nontoxic goiter, unspecified
CPT/HCPCS: 76536

== ENCOUNTER → 2022-07-20 10:41 | Outpatient (BNVA) | payer BC, SELFPAY | PROVIDERS: PCP Family Medicine; Visit Provider Family Medicine | DX: E04.1 Nontoxic single thyroid nodule (principal); E07.9 Disorder of thyroid, unspecified | CPT/HCPCS: 84439; 84443 ==

== ENCOUNTER 2023-01-06 12:21 | Observation (INO) | payer BC, SELFPAY ==
[2023-01-05 09:43] VITALS: BMI 42.1
[2023-01-06] VITALS (36 sets, daily range): BP systolic 144–207; BP diastolic 76–115; PULSE 57–89; RESP 9–32; TEMP 36.3–36.9; O2SAT 92–100
[2023-01-06] MEDS: sodium chloride 0.9% 1,000 ML 30 ML IV (07:06)
--- NOTE | 2023-01-06 07:12 | ANES.PREANE2 ---
Pre-Anesthetic Assessment Height/Weight: Height 1.83 m Weight 141.067 kg Temp Pulse Resp BP Pulse Ox O2 Del Method 97.4 F L 57 L 16 176/104 97 Room Air 01/06/23 06:53 01/06/23 06:53 01/06/23 06:53 01/06/23 06:53 01/06/23 06:53 01/06/23 06:53 Operation Date: 01/06/23 08:20 Proposed Procedures p Hemithyroidectomy 55327,E04.1(Left) - Aniket Vanegas MD Familial anesthetic complications: None Was Beta Chela taken within 24 hours: N/A Was Clonidine taken within 24 hours: N/A Last intake: Intake Last Liquid Date 01/05/23 Last Liquid Time 21:00 Last Solid Date 01/05/23 Last Solid Time 18:00 Social No alcohol and No tobacco Exam alert, oriented x 3, clear to auscultation bilaterally and regular rate & rhythm Airway Mallampati: Class IV Dentition: chipped CV/HEM Mod mvr on echo, cardiology clearance received, patient declined repeat echo at that visit. no clinical symptoms associated w/ MVR so clearance given Metabolic Hyperlipidemia and Morbid Obesity Anesthetic Plan ASA status: 3 Anesthesia: General Risk of > 500 ml blood loss (7ml/kg in children): No Medications/Allergies Home Medications Medication Instructions Recorded Confirmed Last Taken Type No Known Home Medications 01/05/23 01/05/23 Unknown History Allergies Allergy/AdvReac Type Severity Reaction Status Date / Time No Known Allergies Allergy Verified 01/06/23 06:50 Current Medications Generic Name Dose Route Start Last Admin Trade Name Freq PRN Reason Stop Dose Admin Sodium Chloride 1,000 mls @ 30 mls/hr 01/06/23 07:00 01/06/23 07:06 Sodium Chloride 0.9% IV 01/07/23 06:59 30 mls/hr .Q24H ELVIRA Administration PFSH Anesthesia Medical History Heart murmur Hyperlipidemia Thyroid nodule Surgical History History of appendectomy Family History Other CAD (coronary artery disease) Diabetes Social History Smoking and tobacco status: never smoked Alcohol intake: current Substance/Drug Use: never Data Anesthesia Cardiac Studies: No Data to Display
--- NOTE | 2023-01-06 08:45 | W.PM.OPSUD ---
Surgery/Procedure H&P Update DATE OF PROCEDURE: January 06, 2023 DATE H&P PERFORMED: 12/27/22 H&P UPDATE INFORMATION: I have reviewed H&P completed within last 30 days, I have examined patient prior to procedure and No changes to prior documentation PREOP DIAGNOSIS: Left thyroid nodule with a suspicious FNA biopsy PRIMARY INDICATION FOR PROCEDURE: Left thyroid nodule with a suspicious FNA biopsy PLANNED PROCEDURE: Operation Date: 01/06/23 08:20 Proposed Procedures p Hemithyroidectomy 16126,E04.1(Left) - Aniket Vanegas MD
[2023-01-06] MEDS: ceFAZolin 2,000 MG in sodium chloride 0.9% (plus) 50 ML 100 MG IV (08:58)
[2023-01-06] MEDS: EPINEPHrine 1 mg/mL INJ 4 MG XX (10:08)
[2023-01-06] MEDS: fluorescein 1 mg Strip XX (10:09)
[2023-01-06] MEDS: [UNRECOGNIZED DRUG - OTHER] INJECTION (10:09)
[2023-01-06] MEDS: thrombin 5,000 unit SDV 5000 UNIT XX (11:38)
[2023-01-06] MEDS: neomycin-poly-bacitracin oint 28 gm 1 APPLIC TOPICAL (11:51)
[2023-01-06] MEDS: triamcinolone 40 mg/mL SDV IM (11:51)
--- NOTE | 2023-01-06 12:19 | P.OP_ITS ---
Operative Report Date of procedure: January 06, 2023 Pre-op diagnosis: Preop Diagnosis Left thyroid nodule with a suspicious FNA biopsy Post-op diagnosis: Same Post-op findings: - Left thyroid lobe nodule - Left recurrent laryngeal nerve intact visually and electrically - Left Upper and lower parathyroid glands in place and intact - O/W Normal left neck exam Procedure done: Left hemithyroidectomy Implants: None Specimens removed/disposition: Left thyroid lobe Pathology: Left thyroid lobe Surgeon: Aniket Vanegas Service Employee: Joe Brandt Anesthesia: General Estimated blood loss (mL): 25 IV fluids (mL): 1,200 Urine output (mL): 200 Complications: None Findings: - Nodular left thyroid lobe - Left recurrent laryngeal nerve intact visually and to both direct and vagal stimulation at the start and finish of the dissection - Left upper and lower parathyroid glands left insitu - O/W normal left tracheoesophageal space exam Condition: stable Disposition: ICU Brief History: 62 yo wm with a h/o a left thyroid nodule with a suspicious FNA biopsy who desires surgical therapy. Procedure: The patient was identified in the preoperative holding area and was taken to the operating room where he was placed on the operating table in the supine position. Anesthesia was achieved with general endotracheal anesthesia with a Nirvana nerve monitoring electrode in place on the ET tube. Once the proper positioning of the tube was ensured with the glide scope a horizontal skin incision was drawn out 2 fingerbreadths above the sternal notch and was injected with local anesthesia. The patient was prepped and draped in the usual sterile fashion and the incision was made with a 15 blade. The electrocautery unit was used to dissect down through the subcutaneous fat to the strap muscles which were then skeletonized. The avascular midline of the strap muscles was identified and was divided. A blunt dissection was begun over the left thyroid lobe. The left thyroid lobe was identified and the thyroid isthmus was dissected off the trachea in the midline. The thyroid isthmus was then divided with the harmonic scalpel. At this point a circumferential dissection of the left thyroid lobe was started using the Nirvana nerve monitoring hemostat as the left lobe was retracted medially - this was done in a sequential fashion as the lobe was rotated medially exposing the tracheoesophageal groove. At this point the carotid sheath was identified and the vagus nerve was stimulated with the Neurvana stimulating hemostat with positive results. The superior inferior pole vessels were individually dissected free and ligated with ligaclips and divided - this occurred sequentially until the recurrent laryngeal nerve was identified at the inferior border of the cricoid cartilage in the tracheoesophageal groove. The overlying Plasencia's ligament was then divided with bipolar cautery as the gland was rotated medially. The superior and inferior parathyroid glands were identified preserved in place. At this point the wound was inspected for hemostasis which was achieved with bipolar cautery. At this point the wound was irrigated with a copious amount of normal saline and the surgical site was again inspected for hemostasis which was found to be adequate. Gelfoam soaked in thrombin and Decadron was then placed in the tracheoesophageal groove and a drain was placed in the wound. The wound was then closed with interrupted 4-0 Monocryl in the subcutaneous tissues and a running 5-0 Monocryl subcuticular stitch. The final closure was achieved with Dermabond and Steri-Strips. At this point the procedure was terminated and control of the patient was returned to anesthesia where he underwent an uneventful reversal of anesthesia and extubation and was taken to the recovery room in stable condition. There were no operative or anesthetic complications.
--- NOTE | 2023-01-06 12:22 | SUR.OPER ---
1205 report called to Tayler CABRERA, all questions answered, ready to receive pt
--- NOTE | 2023-01-06 12:32 | PC.NURSE ---
Patient arrived to ICU at 1215.
[2023-01-06] MEDS: lactated ringers 1,000 ML 125 ML IV ×2 (12:47→20:22)
[2023-01-06] MEDS: HYDROcodone-acetaminophen 5-325 mg Tablet 1 TAB PO (12:47)
[2023-01-06] MEDS: morphine 4 mg/mL SDV 1 mL 2 MG IVP ×3 (12:47→17:58)
--- NOTE | 2023-01-06 13:25 | ANE.PACU2 ---
Inpatient post-anesthesia follow up: Airway intact: Yes Vital signs: Temperature 97.4 F Pulse Rate 67 Respiratory Rate 16 Blood Pressure 147/76 Pulse Oximetry 100 Oxygen Delivery Me thod Room Air Oxygen Flow Rate 10 Fraction of Inspir ed Oxygen Hydration adequate: Yes Nausea and vomiting: No Pain level: 1 Mental status: Baseline
--- NOTE | 2023-01-06 14:58 | P.PN_ITS ---
Subjective Subjective: 62 yo wm who is night of surgery s/p left hemithyroidectomy. The patient reports that he has moderate pain, but is o/w doing well. His voice is unchanged from preop and he is able to swallow well. The patient denies any other noted symptoms and is o/w doing well. Medications: Reviewed: Yes Vitals/I&O/Wt Last Vital Signs Temp 97.4 F L 01/06/23 06:53 Pulse 64 01/06/23 14:35 Resp 20 H 01/06/23 14:35 BP 166/94 01/06/23 14:35 Pulse Ox 93 01/06/23 14:35 O2 Del Method Room Air 01/06/23 12:23 O2 Flow Rate 10 01/06/23 12:05 01/05/23 01/06/23 01/06/23 22:59 06:59 14:59 Intake Total 50 / 50 Output Total 200 / 200 Balance -150 / -150 Weight last 48 hrs Weight 141.067 kg Weight 141.067 kg Physical Exam Const: COMMON NORMALS: no acute distress, patient oriented x3 and alert HENMT: COMMON NORMALS: normocephalic, atraumatic and Normal external nose present HEAD & SCALP: normocephalic and atraumatic FACE & SINUS: normal facial exam NOSE: Normal external nose present Eye: COMMON NORMALS: EOMs intact bilaterally, conjunctivae normal and no scleral icterus CONJUNCTIVA: Yes conjunctivae normal Neck/C-Spine: COMMON NORMALS: no lymphadenopathy and supple GENERAL: Yes other (Neck wound intact without swelling; drain in place.) Chest: COMMONS NORMALS: normal inspection of the chest Resp: COMMON NORMALS: normal respiratory effort, No retractions, No use of accessory muscles and clear to auscultation bilaterally AUSCULTATION: clear t o auscultation bilaterally Cardio: COMMON NORMALS: regular rate, regular rhythm and No murmurs present (Cardio) RATE: regular rate RHYTHM: regular rhythm GI: COMMON NORMALS: Normal to inspection, nondistended, normoactive bowel sounds present Extremity: COMMON NORMALS: normal to inspection Neuro: COMMON NORMALS: patient oriented x3 SENSORIUM/ORIENTATION: Yes alert Urinary Catheter Management: Aguirre: Cath Placed During This Visit: yes Urinary Catheter Date of Insertion: 01/06/23 Urinary Catheter Time of Insertion: 09:40 A&P Assessment and plan (1) Thyroid nodule: Impression: Suspicious left thyroid nodule doing well s/p left hemithryoidectomy doing well post op Plan: - Overnight ICU observation - Pain control - Closed suction drainage - SCDs - Anticipate d/c in the am Attestations Medical Necessity Statement*: The patient requires overnight observation of his airway Coding Level of Care Code Acute Code for Chg Fwd Diagnoses Thyroid nodule E04.1
[2023-01-06] MEDS: dexamethasone 10 mg/mL INJ IVP ×2 (15:35→21:27)
[2023-01-06] MEDS: ceFAZolin 3,000 MG in sodium chloride 0.9% (100 ml) 100 ML 200 MG IV (18:22)
[2023-01-06] MEDS: famotidine 20 mg/2 mL INJ IVP (19:20)
[2023-01-07] VITALS (7 sets, daily range): BP systolic 133–155; BP diastolic 56–78; PULSE 64–75; RESP 13–18; TEMP 36.7–37.2; O2SAT 93–94
[2023-01-07] MEDS: ceFAZolin 3,000 MG in sodium chloride 0.9% (100 ml) 100 ML 200 MG IV (00:48)
[2023-01-07] MEDS: dexamethasone 10 mg/mL INJ IVP (04:01)
[2023-01-07] MEDS: lactated ringers 1,000 ML 125 ML IV (04:40)
[2023-01-07] MEDS: famotidine 20 mg/2 mL INJ IVP (08:39)
--- NOTE | 2023-01-07 08:52 | PM.PN ---
Subjective Subjective: 62 yo wm who is POD #1 s/p left hemithyroidectomy who is doing well by his report. The patient reports that he is eating well and has minimal pain. The patient is o/w doing well and has no other c/o. Medications: Reviewed: Yes Vitals/I&O/Wt Last Vital Signs Temp 98.1 F 01/07/23 08:00 Pulse 64 01/07/23 06:00 Resp 16 01/07/23 06:00 BP 149/75 01/07/23 06:00 Pulse Ox 94 01/07/23 06:00 O2 Del Method Room Air 01/07/23 06:00 O2 Flow Rate 10 01/06/23 12:05 01/06/23 01/07/23 01/07/23 22:59 06:59 14:59 Intake Total 1881.917 / 8593.430 1195 / 3631.917 240 / 240 Output Total 485 / 685 1120 / 1805 350 / 350 Balance 1396.917 / 1246.917 580 / 1826.917 -110 / -110 Weight last 48 hrs Weight 141.067 kg Weight 141.067 kg Physical Exam Const: COMMON NORMALS: no acute distress and patient oriented x3 HENMT: COMMON NORMALS: normocephalic and atraumatic HEAD & SCALP: normocephalic and atraumatic Eye: COMMON NORMALS: Equal, round and reactive pupils present and conjunctivae normal CONJUNCTIVA: Yes conjunctivae normal PUPIL: Yes Equal, round and reactive pupils present Neck/C-Spine: COMMON NORMALS: no lymphadenopathy and supple GENERAL: Yes trachea midline and Yes other (Neck wound without swelling or erythema.) Chest: COMMONS NORMALS: normal inspection of the chest Resp: COMMON NORMALS: normal respiratory effort, No retractions, No use of accessory muscles and clear to auscultation bilaterally AUSCULTATION: clear to auscultation bilaterally Cardio: COMMON NORMALS: regular rate, regular rhythm and No murmurs present (Cardio) RATE: regular rate RHYTHM: regular rhythm GI: COMMON NORMALS: Normal to inspection, nondistended, normoactive bowel sounds present Extremity: COMMON NORMALS: normal to inspection Neuro: COMMON NORMALS: patient oriented x3 and CN's II-XII intact bilaterally SENSORIUM/ORIENTATION: Yes other (Voice unchanged from preop.) Urinary Catheter Management: Aguirre: Cath Placed During This Visit: yes Urinary Catheter Date of Insertion: 01/06/23 Urinary Catheter Time of Insertion: 09:40 A&P Assessment and plan (1) Thyroid nodule: Impression: POD #1 s/p left hemithyroidectomy for thyroid nodule with a suspicioius FNA biopsy doing well from the surgical standpoint Plan: - D/C to home - [place] () tabs: take 1-2 tabs po Q5 hours prn pain, #25, NR - Apply AUGUSTA to drain site TID - Regular diet - Resume preop meds - Operate drain as per instructions - F/U with Dr. Vanegas on 01/10/23 - Notify Dr. Vanegas for any problems Attestations Medical Necessity Statement*: The patient required overnight observation of his airway Coding Level of Care Code Acute Code for Chg Fwd Diagnoses Thyroid nodule E04.1
--- NOTE | 2023-01-07 09:34 | PC.NURSE ---
Patient received DC orders. All IVs removed. Prescriptions sent with patient to give to preferred pharmacy. Patient ambulated to main exit with at 0932.
== END 2023-01-07 09:32 | disposition home or self-care (01) ==
LOC: ICU 12:22
PROVIDERS: Admitting Provider Specialist; PCP Family Medicine; Visit Provider Specialist
PROC: (CPT 60220; principal; 2023-01-06 08:10)
DX: E04.1 Nontoxic single thyroid nodule (principal)
CPT/HCPCS: 60220; 12345; 51702; 88307; 96376; G0378; J0171; J0690; J1100; J2270; J2405; J2704; J3010; J3301; J3490; J7030; J7120

== ENCOUNTER → 2023-02-16 15:54 | Outpatient (BNVA) | payer BC, SELFPAY | PROVIDERS: PCP Family Medicine; Visit Provider Family Medicine | DX: E78.5 Hyperlipidemia, unspecified (principal) | CPT/HCPCS: 84439; 84443 ==

== ENCOUNTER → 2023-04-12 14:52 | Outpatient (BNVA) | payer BC, SELFPAY | PROVIDERS: PCP Family Medicine; Visit Provider Family Medicine | DX: E04.1 Nontoxic single thyroid nodule (principal) | CPT/HCPCS: 84439; 84443 ==

== ENCOUNTER → 2023-08-19 09:13 | Outpatient (BNVA) | payer BC, SELFPAY | PROVIDERS: PCP Family Medicine; Visit Provider Family Medicine | DX: E03.9 Hypothyroidism, unspecified (principal) | CPT/HCPCS: 84443 ==

== ENCOUNTER 2023-10-13 06:42 | Emergency (ER) | payer BC, SELFPAY ==
[2023-10-13] VITALS (12 sets, daily range): BP systolic 139–183; BP diastolic 87–113; PULSE 56–73; RESP 18; TEMP 36.8; O2SAT 92–99; BMI 42.7
--- NOTE | 2023-10-13 06:57 | ECG_ITS ---
[facility] Test Date: 2023-10-13 Pat Name: Jaime Carson Department: Room: Gender: Male Enterprise Engineer: : 1960 Requested By: Edgar Goss Order Number: [id number] Nereyda MD: Javier Tan M.D. Measurements Intervals [place] Rate: 61 P: 46 [place]: 197 QRS: -26 QRSD: 103 T: 29 QT: 416 QTc: 420 Interpretive Statements SINUS RHYTHM BORDERLINE LEFT AXIS DEVIATION [QRS AXIS < -20] Compared to ECG 06/26/2021 09:19:02 No significant changes Electronically Signed On 10-13-2023 14:44:20 SENIOR PHP DEVELOPER by Javier Tan M.D. [id number] f
--- NOTE | 2023-10-13 07:16 | CT_ITS ---
WS: [id number] CT HEAD TECHNIQUE: Noncontrast CT of the head obtained from the skullbase to the vertex. CLINICAL INFORMATION: L sided weakness and numbness - resolved COMPARISON: MRI 06/10/[address] 10 27/06/2022 DLP: 1188.[address] scans at [facility] use at least one of these dose optimization techniques: automated e xposure control; mA and/or kV adjustment per patient size (includes targeted exams where dose is matc hed to clinical indication); or iterative reconstruction. FINDINGS: No evidence of intracranial hemorrhage or mass effect. Ventricular system and basal cisterns are alvarado nt. Moderate small vessel changes with mild parenchymal volume loss. Chronic lacunar infarcts LEFT ca udate and basal ganglia unchanged.No extra-axial fluid collections. No evidence of mass or mass effec t. Paranasal sinuses and mastoid air cells are well aerated. .Normal visualized soft tissues. IMPRESSION: 1. No evidence of intracranial hemorrhage or mass effect. 2. Moderate small vessel changes with mild parenchymal volume loss. 3. Chronic lacunar infarcts LEFT caudate and basal ganglia unchanged. 4. Intracranial vascular calcification. 5. No acute intracranial findings.
--- NOTE | 2023-10-13 07:16 | XR_ITS ---
WS: [id number] Portable AP upright chest, 10/13/2023 Clinical Data: dyspnea/cough Comparison: Portable chest, 06/26/2021 Findings: No nodules, masses or effusions are seen. The heart is enlarged. The pulmonary vascularity is not increased. No pneumonia or pneumothorax is seen. The aortic arch and descending thoracic aorta show tortuosity. There are monitor leads on the chest wall. Impression: Cardiomegaly and atherosclerosis.
--- NOTE | 2023-10-13 07:45 | ED_ITS ---
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 His symptoms have completely resolved by the time he arrives here. He reports having a headache the last couple of days. Was initial blood pressure was markedly elevated but improved after he had been here for short period of time. He has some mild twinges of what he describes as chest discomfort. He has noticed some vision changes but has been going on for the last several days. He was seen yesterday by optometry and did not have any significant findings on exam. He describes some intermittent scotoma. No previous diagnosis of hypertension hyperlipidemia or coronary artery disease. Onset (ago): hour(s) Location: face, left, upper extremity and lower extremity Severity: mild Relieving factors: none Exacerbating factors: none Associated symptoms: Deny chest pain, confusion, cough, diaphoresis, decreased appetite, dyspnea, fevers/chills, headache(s), malaise, nausea, rash, palpitations, seizures, short of breath, syncope, vomiting or weakness Treatments prior to arrival: none Review of Systems 2 Const: Denies: malaise or diaphoresis Card: Denies: chest pain, palpitations or syncope Resp: Denies: dyspnea GI: Denies: nausea or vomiting : Denies: dysuria, urinary frequency or urinary urgency Musc: Denies: neck pain or back pain Skin/Breast: Denies: rash Neuro: Denies: headache(s) or confusion PFSH ED 2 PFSH: Medical History Hyperlipidemia Thyroid nodule Heart murmur Surgical History History of appendectomy Family History Other CAD (coronary artery disease) Diabetes Social History Smoking and tobacco/nicotine status: never used tobacco/nicotine Alcohol intake: current Substance/Drug Use: never Physical Exam 2 Const: COMMON NORMALS: no acute distress GENERAL APPEARANCE: cooperative and comfortable ORIENTATION/CONSCIOUSNESS: Yes awake, Yes oriented to person, Yes oriented to place and Yes oriented to time HENMT: COMMON NORMALS: normocephalic, atraumatic and hearing grossly normal bilaterally HEAD & SCALP: normocephalic and atraumatic Resp: COMMON NORMALS: normal respiratory effort, No retractions, No use of accessory muscles and clear to auscultation bilaterally AUSCULTATION: clear to auscultation bilaterally Cardio: COMMON NORMALS: regular rate, regular rhythm and No murmurs present (Cardio) RATE: regular rate RHYTHM: regular rhythm GI: COMMON NORMALS: Soft to palpation and No hepatosplenomegaly present A USCULTATION: Yes normoactive bowel sounds PALPATION: Yes Soft to palpation, No Tenderness to palpation present (GI), No Guarding due to palpation present (GI) and Yes No hepatosplenomegaly present Extremity: COMMON NORMALS: normal to inspection, capillary refill normal, no clubbing, cyanosis or edema, no calf tenderness and no pedal edema Neuro: SENSORIUM/ORIENTATION: Yes oriented to person, Yes oriented to place and Yes oriented to time Skin: COMMON NORMALS: no rashes or lesions noted GENERAL SKIN EXAM: no rashes or lesions noted Course 2 Vital Signs: Vital signs: Vital Signs Temperature 98.3 F 10/13/23 06:54 Pulse Rate 56 L 10/13/23 12:24 Respiratory Rate 18 10/13/23 06:54 Blood Pressure 154/93 10/13/23 12:24 Pulse Oximetry 99 10/13/23 12:24 Oxygen Delivery Me thod Room Air 10/13/23 12:00 MDM - General Adult Medical Decision Making Symptoms completely resolved. NIH is 0. EKG and cardiac enzymes negative. EKG does not show any acute ST changes. EKG showed normal sinus bradycardia with no significant abnormalities rate of 56. Discharge patient home with dual antiplatelet therapy outpatient workup also start statin. Medical Records I reviewed the patient's medical records. Lab Data I reviewed the patient's lab results. 10/13/23 08:21 10/13/23 08:21 Laboratory Results WBC 5.39 10^3/uL (3.29-11.43) 10/13/23 08:21 RBC 4.84 10^6/uL (3.85-5.65) 10/13/23 08:21 Hgb 14.30 g/dL (11.27-16.99) 10/13/23 08:21 Hct 42.2 % (37-53) 10/13/23 08:21 MCV 87.2 fl (82-101) 10/13/23 08:21 MCH 29.5 pg (27-33) 10/13/23 08:21 MCHC 33.9 g/dL (30-55) 10/13/23 08:21 RDW 12.5 % (12.1-15.1) 10/13/23 08:21 Plt Count 236 10^3/cmm (157-399) 10/13/23 08:21 MPV 9.4 fL (7.4-10.4) 10/13/23 08:21 Neut % (Auto) 66.0 % 10/13/23 08:21 Lymph % (Auto) 24.3 % 10/13/23 08:21 Wilkes % (Auto) 6.9 % 10/13/23 08:21 Eos % (Auto) 2.0 % 10/13/23 08:21 Baso % (Auto) 0.4 % 10/13/23 08:21 Neut # (Auto) 3.56 10^3/uL (1.8-7.7) 10/13/23 08:21 Lymph # (Auto) 1.3 10^3/uL (0.8-4.8) 10/13/23 08:21 Wilkes # (Auto) 0.4 10^3/uL (0.2-0.9) 10/13/23 08:21 Eos # (Auto) 0.1 10^3/uL (0.0-0.8) 10/13/23 08:21 Baso # (Auto) 0.0 10^3/uL (0.0-0.1) 10/13/23 08:21 Nucleated RBC % (auto) 0 % 10/13/23 08:21 Nucleated RBCs # 0.0 /100WBC 10/13/23 08:21 Sodium 139 mmol/L (136-145) 10/13/23 08:21 Potassium 4.5 mmol/L (3.5-5.1) 10/13/23 08:21 Chloride 104 mmol/L (98-107) 10/13/23 08:21 Carbon Dioxide 23 mmol/L (22-29) 10/13/23 08:21 Anion Gap 16.5 (5-19) 10/13/23 08:21 BUN 13 mg/dL (8-23) 10/13/23 08:21 Creatinine 1.0 mg/dL (0.7-1.2) 10/13/23 08:21 GFR Calculation 75.5 mL/min (90-130) L 10/13/23 08:21 Glucose 103 mg/dL (65-115) 10/13/23 08:21 Calculated Osmolality 288 mOsm/kg (285-295) 10/13/23 08:21 Calcium 9.0 mg/dL (8.5-10.5) 10/13/23 08:21 Total Bilirubin 0.7 mg/dL (0.15-1.2) 10/13/23 08:21 AST 21 U/L (0-40) 10/13/23 08:21 ALT 30 U/L (0-41) 10/13/23 08:21 Alkaline Phosphatase 96 U/L (40-130) 10/13/23 08:21 Troponin T Baseline 13 ng/L (0-15) 10/13/23 08:21 Troponin T 120 Minute 9.79 ng/L (0-15) 10/13/23 11:24 Delta Troponin T -3.21 ABS# (0-10) L 10/13/23 11:24 Total Protein 6.9 g/dL (6.6-8.7) 10/13/23 08:21 Albumin 4.3 g/dL (3.5-5.2) 10/13/23 08:21 Globulin 2.6 g/dL (1.3-4.6) 10/13/23 08:21 Urine Color Yellow (Yellow) 10/13/23 11:27 Urine Appearance Clear (CLEAR) 10/13/23 11:27 Urine pH 7 (5-7) 10/13/23 11:27 Ur Specific [place] 1.010 (1.005-1.030) 10/13/23 11:27 Urine Protein Neg (Negative) 10/13/23 11:27 Urine Glucose (UA) Norm (Normal) 10/13/23 11:27 Urine Ketones Negative (Negative) 10/13/23 11:27 Urine Blood Neg (Negative) 10/13/23 11:27 Urine Nitrate Negative (Negative) 10/13/23 11:27 Urine Bilirubin Neg (Negative) 10/13/23 11:27 Urine Urobilinogen Neg mg/dL (Negative) 10/13/23 11:27 Ur Leukocyte Esterase Negative (Negative) 10/13/23 11:27 All radiology interpretation(s) finalized by discharge Discharge Plan Discharge Patient Disposition: Home Clinical Impression: TIA (transient ischemic attack), Atypical chest pain, HTN (hypertension) Condition: Stable Prescriptions: New clopidogrel 75 mg tablet 75 mg PO DAILY Qty: 30 0RF atorvastatin 40 mg tablet 40 mg PO DAILY Qty: 30 0RF aspirin 81 mg tablet,delayed release (DR/EC) 81 mg PO DAILY Qty: 30 0RF amlodipine 2.5 mg tablet 2.5 mg PO DAILY Qty: 30 0RF No Action levothyroxine 150 mcg tablet 150 mcg PO DAILY Qty: 30 11RF Discharge Orders: Discharge ED (Routine); Ordered 10/13/23 Ordered By: Edgar Cosme Referrals: Rocky Hernandez MD [Primary Care Provider] - Discharge Diet: Usual diet Discharge Activity: Resume usual activity Patient Instructions: Opioid Safety, Pain Management Activity Restrictions/Additional Instructions: Thank you for choosing [facility] for your healthcare needs today. Please realize this is an emergency room and that we are providing you with a medical screening exam and this may not be complete and all inclusive of all the testing and or work up that you may need to determine your ailment or severity of your illness. It is very important that you follow up as instructed or that you return to the Emergency Department should you have concerns or if your condition changes or worsens in any way. You are seen today with complaints of left-sided weakness and numbness. Your CT of your head was negative stroke scoring was 0. Recommend starting aspirin atorvastatin clopidogrel as secondary prevention for TIA/stroke. Additionally you should have a stress test. Case management will set this up as an outpatient. Your cardiac enzymes and EKG did not show any significant abnormality today but you should have a stress test to complete cardiac workup. Coding Level of Care Code ED [employer] Law Clerk for Shahana Todd NIH stroke score NIHSS Level Of Consciousness - 1a: 0 Level Of Consciousness Questions - 1b: Both Correct Level Of Consciousness Commands - 1c: Both Correct Best Gaze - 2: Normal Visual [place] - 3: No Visual Loss Facial Palsy - 4: Normal Motor Arm Right - 5: No Drift Motor Arm Left - 5: No Drift Motor Leg Right - 6: No Drift Motor Leg Left - 6: No Drift Limb Ataxia - 7: Absent Sensory - 8: Normal Best Language - 9: No Aphasia Dysarthia - 10: Normal Extinction And Inattention - 11: 0 Score Total Score: 0
[2023-10-13 08:29] LABS: Basophils % 0.4 %; Eosinophils # 0.1 10^3/uL (0.0-0.8); Hematocrit 42.2 % (37-53); Lymphocytes # 1.3 10^3/uL (0.8-4.8); Lymphocytes % 24.3 %; Mean Corpuscular HGB Conc 33.9 g/dL (30-55); Mean Corpuscular Hemoglobin 29.5 pg (27-33); Mean Corpuscular Volume 87.2 fl (82-101); Mean Platelet Volume 9.4 fL (7.4-10.4); Monocytes # 0.4 10^3/uL (0.2-0.9); Monocytes % 6.9 %; Neutrophils # 3.56 10^3/uL (1.8-7.7); Nucleated Red Blood Cells % 0 %; Platelet Count 236 10^3/cmm (157-399); Red Blood Count 4.84 10^6/uL (3.85-5.65); Red Cell Distribution Width 12.5 % (12.1-15.1); White Blood Count 5.39 10^3/uL (3.29-11.43)
[2023-10-13 08:53] LABS: Alanine Aminotransferase 30 U/L (0-41); Albumin Level 4.3 g/dL (3.5-5.2); Alkaline Phosphatase 96 U/L (40-130); Anion Gap 16.5 (5-19); Aspartate Amino Transferase 21 U/L (0-40); Blood Urea Nitrogen 13 mg/dL (8-23); Carbon Dioxide 23 mmol/L (22-29); Chloride 104 mmol/L (98-107); Creatinine Clr Calc Pharmacy 110.9151; Globulin 2.6 g/dL (1.3-4.6); Glomerular Filtration Rate 75.5 mL/min (90-130); Glucose 103 mg/dL (65-115); Osmolality Calculated 288 mOsm/kg (285-295); Potassium 4.5 mmol/L (3.5-5.1); Sodium 139 mmol/L (136-145); Total Bilirubin 0.7 mg/dL (0.15-1.2); Total Protein 6.9 g/dL (6.6-8.7)
[2023-10-13 08:54] LABS: Troponin(5th) Baseline 13 ng/L (0-15)
--- NOTE | 2023-10-13 09:16 | ECG_ITS ---
[facility] Test Date: 2023-10-13 Pat Name: Jaime Carson Department: Room: Gender: Male Environmental Adviser: : 1960 Requested By: Edgar Goss Order Number: [id number] Nereyda MD: Javier Tan M.D. Measurements Intervals [place] Rate: 56 P: 41 [place]: 194 QRS: -25 QRSD: 108 T: 47 QT: 423 QTc: 411 Interpretive Statements SINUS BRADYCARDIA BORDERLINE LEFT AXIS DEVIATION [QRS AXIS < -20] Compared to ECG 10/13/2023 06:57:03 Sinus rhythm no longer present Electronically Signed On 10-13-2023 14:50:32 ASSISTANT MANAGER PT by Javier Tan M.D. [id number]
[2023-10-13] MEDS: acetaminophen 325 mg Tablet 650 MG PO (11:24)
[2023-10-13 11:40] LABS: Add Urine Microscopic? NO; Charge for UA Resulting for Rev
[2023-10-13 11:44] LABS: Bilirubin Urine Neg (Negative); Blood Urine Neg (Negative); Glucose Urine UA Norm (Normal); Ketones Urine Negative (Negative); Leukocyte Esterase Urine Negative (Negative); Nitrate Urine Negative (Negative); Protein Urine Neg (Negative); Urine Appearance Clear (CLEAR); Urine Color Yellow (Yellow); Urobilinogen Urine Neg (Negative); pH Urine 7 (5-7)
[2023-10-13 11:53] LABS: Troponin 5 2HR 9.79 ng/L (0-15)
[2023-10-13 12:00] LABS: Troponin 5 2HR Delta -3.21 ABS# (0-10)
--- NOTE | 2023-10-21 08:28 | DCPLANNER ---
A message was sent to heart care about the 48 hr holter monitor on 10/21/23 at 0828. Clinic to contact patient
--- NOTE | 2023-10-21 08:30 | DCPLANNER ---
A message was sent to neurology on 10/21/23 at 0830.Clinic to contact patient for appt
== END 2023-10-13 12:27 | disposition home or self-care (01) ==
PROVIDERS: Emergency Provider Family Medicine; PCP Family Medicine
DX: G45.9 Transient cerebral ischemic attack, unspecified (principal); R07.89 Other chest pain; I10 Essential (primary) hypertension; E78.5 Hyperlipidemia, unspecified
CPT/HCPCS: 36415; 70450; 71045; 80053; 81003; 84484; 85025; 93005; 99285

== ENCOUNTER 2023-11-02 08:07 | Outpatient (CLI) | payer BC, SELFPAY ==
--- NOTE | 2023-11-02 09:00 | USCV_ITS ---
Jaime Carson Age: 63 Gender: M : 1960 Exam Date: 11/02/2023 08:36 Ordering Phys: Rocky Hernandez MD Technologist: COLLEEN Exam Location: [facility] [place] Indication: tia BP: 146 / 92 HR: 60 Rhythm: Sinus Technical Quality: Adequate MEASUREMENTS (Male / Female) Normal Values 2D ECHO LVOT Diameter 2.7 cm LV Ejection Fraction MOD 2C 61.2 % LV Ejection Fraction 2C AL 61.0 % LA Diameter 4.0 cm Aorta at Sinotubular Diameter 3.1 cm M-MODE LA Ao Ratio MM 1.2 AV Cusp Separation MM 2.0 cm DOPPLER AV Peak Velocity 113.0 cm/s LVOT Peak Velocity 89.0 cm/s AV Area Cont Eq vti 4.5 cm squared AV Area Cont Eq pk 4.5 cm squared MV Peak Velocity 94.0 cm/s MV Area PHT 3.3 cm squared Mitral E to A Ratio 1.3 TV Peak Velocity 144.5 cm/s TR Peak Velocity 159.0 cm/s TR Peak Gradient 10.1 mmHg TV Peak E Velocity 79.0 cm/s Right Atrial Pressure 3.0 mmHg Pulmonary Artery Systolic Pressu 13.1 mmHg PV Peak Velocity 128.5 cm/s FINDINGS Left Ventricle Left ventricle is normal in size. LV systolic function is normal with EF of 55 to 60%. No regional wall motion abnormalities are seen. Right Ventricle Normal in size and function Right Atrium Normal in size Left Atrium Normal in size Mitral Valve Structurally normal mitral valve. Mild mitral regurgitation. Aortic Valve Structurally normal aortic valve. No significant stenosis or regurgitation. Tricuspid Valve Trace tricuspid regurgitation. Pulmonary artery systolic pressure is normal. Pulmonic Valve Not well visualized Pericardium Trace pericardial effusion. Aorta Normal in size IVC Appears to be normal CONCLUSIONS LV systolic function is normal with EF of 55-60% Mild mitral regurgitation Trace tricuspid regurgitation Trace pericardial effusion Compared to prior echocardiogram from 2013, trace pericardial effusion is seen now. Javier Tan MD (Electronically Signed) Final Date: 07 November 2023 09:41 S
== END 2023-11-02 08:08 | disposition home or self-care (01) ==
LOC: RAD 08:08
PROVIDERS: PCP Family Medicine; Visit Provider Family Medicine
DX: G45.9 Transient cerebral ischemic attack, unspecified (principal); I08.1 Rheumatic disorders of both mitral and tricuspid valves
CPT/HCPCS: 93306

== ENCOUNTER 2023-11-02 08:07 | Outpatient (CLI) | payer BC, SELFPAY ==
--- NOTE | 2023-11-02 08:30 | USCV_ITS ---
Jaime Carson Age: 63 Gender: M : 1960 Exam Date: 11/02/2023 08:16 Ordering Phys: Rocky Hernandez MD Technologist: COLLEEN Exam Location: [facility] [place] Indication: TIA Risk Factors: Previous Vascular Surgery: Right Brachial BP: / Left Brachial BP: / Right Left Velocity (cm/s) Spectral Plaque Velocity (cm/s) Spectral Plaque Syst/Diast Broadening Syst/Diast Broadening 97.30/ 22.00 Prox CCA 89.30 / 20.10 93.20/ 19.30 Mid CCA 84.50 / 20.80 66.70/ 15.30 Distal CCA 52.60 / 16.40 35.40/ 11.40 Prox ICA 34.30 / 11.40 44.90/ 17.10 Mid ICA 61.30 / 23.00 85.30/ 24.40 Distal ICA 70.90 / 32.90 54.80 ECA 85.70 1.30 ICA/CCA 1.30 Antegrade Vertebral Antegrade 39.10/ 15.80 cm/s 66.00/ 29.30 cm/s Tri Subclavian Tri 105.9 119.8 0 0 CONCLUSIONS Right ICA stenosis <50%. Mild atheromatous plaque right carotid bulb/ICA. Left ICA stenosis <50%. Mild atheromatous plaque left carotid bulb/ICA. Intimal thickening in the common carotid arteries and internal carotid arteries bilaterally. Normal antegrade Doppler flow noted in the right vertebral artery. Normal antegrade Doppler flow noted in the left vertebral artery. Chino Jain MD (Electronically Signed) Final Date: 02 November 2023 09:21 S
== END 2023-11-02 08:08 | disposition home or self-care (01) ==
LOC: RAD 08:08
PROVIDERS: PCP Family Medicine; Visit Provider Family Medicine
DX: G45.9 Transient cerebral ischemic attack, unspecified (principal); I65.23 Occlusion and stenosis of bilateral carotid arteries
CPT/HCPCS: 93880

== ENCOUNTER 2023-11-28 16:06 | Outpatient (CLI) | payer BC, SELFPAY ==
--- NOTE | 2023-11-28 16:30 | CT_ITS ---
WS: [id number] CT ANGIOGRAM CEREBRAL AND CAROTID ARTERIES HISTORY: tia TECHNIQUE: CT angiogram is performed of the carotid and cerebral arteries. During arterial injection imaging is obtained from the skull vertex to the aortic arch in 1.25 mm imaging. Coronal and sagittal reformats are submitted. Additional multi planar reformats of the carotid and cerebral arteries are submitted, MIP imaging also reviewed. NASCET criteria utilized. All CT scans at [facility] us e at least one of these dose optimization techniques: automated exposure control; mA and/or kV adjust ment per patient size (includes targeted exams where dose is matched to clinical indication); or iter ative reconstruction. CONTRAST: Omnipaque 350; 100 mL IV. DLP: 1300.50 mGy.cm COMPARISON: CT head 10/13/2023, carotid ultrasound 11/02/[address] is first performed. Reidentified are small bilateral basal ganglia infarcts. No hemorr camille. Carotid Angiogram: Right carotid: Common carotid artery: Arises normally from the innominate artery. No significant plaque or stenosis. Internal carotid artery: Mild intimal thickening at the bifurcation. No calcified plaque or obstructi on. External carotid artery: Patent. Left carotid: Common carotid artery: Arises normally from the aorta. No significant plaque or stenosis. Internal carotid artery: Minimal intimal thickening. No calcified plaque at the bifurcation. External carotid artery: Patent. Right vertebral artery: Unremarkable. Left vertebral artery: Mildly dominant. No stenosis. Arises normally from the LEFT subclavian artery. Subclavian arteries: No stenosis or significant abnormality. Upper thorax: Normal. Thyroid gland: LEFT thyroidectomy. Osseous structures: Mild straightening of the normal cervical lordosis. CEREBRAL ANGIOGRAM: Intracranial vertebral arteries: Mildly dominant LEFT vertebral artery. Patent, no occlusion or signi ficant calcified plaque. Basilar artery: No significant stenosis or occlusion. No aneurysm. Intracranial Internal carotid arteries: Mild atherosclerotic plaque in the intracranial carotid arter ies through the cavernous sinuses. There is no stenosis or aneurysm. Middle cerebral arteries: Normal. Anterior cerebral arteries and ACOM: Normal. Posterior cerebral arteries and PCOM's: Normal. Dural venous sinuses are normally enhancing. Mastoid air cells: Normal. Paranasal sinuses: Normal. Calvarium: Normal. IMPRESSION: 1. No significant cervical carotid artery stenosis. Mild intimal thickening in the bifurcations. 2. No cerebral aneurysm or significant atherosclerotic plaque. 3. Patent bilateral vertebral arteries. 4. Unremarkable [place].
[2023-11-28] MEDS: iohexol 350 mg/mL 500 mL Btl (per mL) IV (16:38)
== END 2023-11-28 16:07 | disposition home or self-care (01) ==
PROVIDERS: PCP Family Medicine; Visit Provider Family Medicine
DX: G45.9 Transient cerebral ischemic attack, unspecified (principal)
CPT/HCPCS: 70496; 70498; Q9967

== ENCOUNTER 2024-08-10 08:41 | Emergency (ER) | payer OTHER, SELFPAY ==
[2024-08-10] VITALS (49 sets, daily range): BP systolic 135–219; BP diastolic 83–134; PULSE 69–92; RESP 12–21; TEMP 36.9; O2SAT 82–100; BMI 39.2
--- NOTE | 2024-08-10 08:47 | ECG_ITS ---
[facility]: 2024-[facility]-10 Pat Name: Jaime Carson Department: Room: Gender: Male Manager Supply: : 1960 Requested By: Heriberto Sommers Order Number: [id number] Dawn MD: Hallie Mnedoza M.D. Measurements Intervals Henriette Rate: 84 P: 71 IA: 183 QRS: -26 QRSD: 104 T: 77 QT: 370 QTc: 438 Interpretive Statements SINUS RHYTHM WITH SINUS ARRHYTHMIA BORDERLINE LEFT AXIS DEVIATION [QRS AXIS < -20] MODERATE ST DEPRESSION [0.05+ mV ST DEPRESSION] Compared to ECG 10/13/2023 09:28:13 ST (T wave) deviation now present Sinus bradycardia no longer present Electronically Signed On 08-10-2024 21:35:01 DISBURSING OFFICER by Hallie Mendoza M.D. [email or web address]
[2024-08-10 08:55] LABS: Glucose Point of Care 178 mg/dL (70-110)
--- NOTE | 2024-08-10 09:02 | PC.PHAR ---
spoke to patients to get his med list
--- NOTE | 2024-08-10 09:05 | CT_ITS ---
WS: [id number] CT HEAD TECHNIQUE: Noncontrast CT of the head obtained from the skullbase to the vertex. CLINICAL INFORMATION: Symptoms of acute stroke COMPARISON: None. DLP: All CT scans at [facility] use at least one of these dose optimization techniques: automated e xposure control; mA and/or kV adjustment per patient size (includes targeted exams where dose is matc hed to clinical indication); or iterative reconstruction. FINDINGS: No evidence of intracranial hemorrhage. Low-attenuation change in the RIGHT parasagittal posterior te mporal occipital junction suspicious for subacute ischemia measuring 2.5 x 1.5 cm. This appears new f rom previous. Low-attenuation change extends into the RIGHT parasagittal occipital lobe in the RIGHT ELECTRIC FREIGHT CAR OPERATOR territory. Ventricular system and basal cisterns are patent. Moderate small vessel changes with m ild parenchymal volume loss. Numerous small chronic lacunar infarcts in the love radiata, left caud ate, and basal ganglia. Air-fluid level RIGHT maxillary sinus compatible with sinusitis. Ethmoid sinusitis. Mastoid air cells are well aerated. CT/CT head thrombolytic [id number] IMPRESSION: 1. No evidence of intracranial hemorrhage 2. Suspected subacute RIGHT ELECTRIC FREIGHT CAR OPERATOR territory infarct involving the RIGHT parasagi ttal occipital lobe extending into the temporal occipital junction posteriorly. 3. Moderate small vessel changes with mild parenchymal volume loss. 4. Numerous small chronic lacunar infarcts in the basal ganglia and love rad iata. 5. RIGHT maxillary sinusitis. Ethmoid sinusitis. Notified Heriberto Sommers at 08/10/2024 9:17 AM.
[2024-08-10 09:14] LABS: Basophils % 0.1 %; Eosinophils % 0.1 %; Hematocrit 45.7 % (37-53); Lymphocytes # 1.5 10^3/uL (0.8-4.8); Mean Corpuscular HGB Conc 34.4 g/dL (30-55); Mean Corpuscular Hemoglobin 29.1 pg (27-33); Mean Corpuscular Volume 84.6 fl (82-101); Mean Platelet Volume 9.8 fL (7.4-10.4); Monocytes # 0.6 10^3/uL (0.2-0.9); Monocytes % 4.1 %; Neutrophils # 12.62 10^3/uL (1.8-7.7); Neutrophils % 85.1 %; Nucleated Red Blood Cells % 0 %; Platelet Count 299 10^3/cmm (157-399); Red Cell Distribution Width 11.9 % (12.1-15.1); White Blood Count 14.84 10^3/uL (3.29-11.43)
[2024-08-10] MEDS: propofol 1,000 MG/100 ML INJ 4.27 MG IV (09:15)
[2024-08-10 09:25] LABS: INR 0.92 (0.8-1.2)
--- NOTE | 2024-08-10 09:26 | XRR_ITS ---
PROCEDURE INFORMATION: Exam: XR Chest Exam date and time: 08/10/2024 9:31 AM Age: 64 years old Clinical indication: Device placement; Ett placement (vent status); Additional info: Tube placement TECHNIQUE: Imaging protocol: Radiologic exam of the chest. Views: 1 view. COMPARISON: CR XR chest 1V portable [id number] 10/13/2023 7:52 AM FINDINGS: Tubes, catheters and devices: Patient has undergone placement of an ET tube terminating proximally 4 cm above the josh in adequate position. There is an NG tube coursing below the field of view into the stomach. Lungs: Visualized lung allen are clear. Pleural spaces: Unremarkable. No pleural effusion. No pneumothorax. Heart/Mediastinum: Heart is enlarged, unchanged. Bones/joints: No acute bony abnormalities detected. XR/XR chest 1V portable [id number] IMPRESSION: ETT and NG tube in satisfactory position.
[2024-08-10 09:28] LABS: Alanine Aminotransferase 43 U/L (0-41); Albumin Level 4.4 g/dL (3.5-5.2); Alkaline Phosphatase 113 U/L (40-130); Anion Gap 16.2 (5-19); Aspartate Amino Transferase 21 U/L (0-40); Blood Urea Nitrogen 15 mg/dL (8-23); Calcium 9.4 mg/dL (8.5-10.5); Carbon Dioxide 21 mmol/L (22-29); Chloride 105 mmol/L (98-107); Globulin 3.1 g/dL (1.3-4.6); Glucose 130 mg/dL (65-115); Osmolality Calculated 289 mOsm/kg (285-295); Potassium 4.2 mmol/L (3.5-5.1); Sodium 138 mmol/L (136-145); Total Bilirubin 0.5 mg/dL (0.15-1.2); Total Protein 7.5 g/dL (6.6-8.7)
[2024-08-10] MEDS: sodium chloride 0.9% 500 ML 999 ML IV (09:34)
--- NOTE | 2024-08-10 09:42 | CT_ITS ---
WS: [id number] CTA HEAD AND NECK TECHNIQUE: Contrast enhanced CTA of the head and neck with coronal and sagittal reformatted images an d maximum intensity projection (MIP) images. NASCET criteria utilized. CLINICAL INFORMATION: cva COMPARISON: CTA 11/28/2023 DLP: 622.[address] scans at [facility] use at least one of these dose optimization techniques: automated e xposure control; mA and/or kV adjustment per patient size (includes targeted exams where dose is matc hed to clinical indication); or iterative reconstruction. FINDINGS: RIGHT: RIGHT common carotid artery is patent. No significant RIGHT ICA stenosis. RIGHT ICA is patent at the skull base. LEFT: LEFT common carotid artery is patent. No significant LEFT ICA stenosis. LEFT ICA is patent to t he skull base. Endotracheal tube. LEFT dominant vertebral artery. Both vertebral arteries are patent. Occlusion of t he proximal basilar artery appears new from previous. Suggestion of a tiny amount of flow in the mid to distal basilar artery. Flow seen in the distal basilar tip persistent but decreased flow to the pr oximal CASH REGISTER OPERATOR territories. Decreased flow in the RIGHT greater than LEFT distal CASH REGISTER OPERATOR territory. Evolving RIGHT subacute RIGHT CASH REGISTER OPERATOR territory infarct. Possible evolving smaller LEFT CASH REGISTER OPERATOR territory infarct alth ough equivocal. This could be followed up with MRI. Mild cavernous carotid calcification. Normal vascularity to the JOHN and MCA territories bilaterally. Mild to moderate intracranial atheromatous disease. Endotracheal tube above the josh. Enteric tube. Patchy infiltrate/atelectasis in the LEFT lower lob e. Atelectasis RIGHT lower lobe partially visualized. Proximal subclavian arteries are patent. Mild s pondylitic changes cervical spine. CT/CT angio headneck* [id number] IMPRESSION: 1. 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 N o flow in the proximal basilar artery. Small amount of flow in the distal basi lar tip with persistent but decreased flow in the CASH REGISTER OPERATOR territory visualized. Dec reased vascularity in the RIGHT greater than LEFT CASH REGISTER OPERATOR territory 2. Subacute evolving RIGHT CASH REGISTER OPERATOR territory infarct as seen on the noncontrast he ad CT. Possible evolving subacute LEFT distal CASH REGISTER OPERATOR territory infarct although eq uivocal. 3. No other significant changes. 4. No significant cervical ICA stenosis. 5. LEFT dominant vertebral artery. Both vertebral arteries are patent to the b asilar junction. 6. ETT. Notified Heriberto Sommers at 08/10/2024 11:07 AM.
[2024-08-10 09:47] LABS: Bilirubin Urine Negative (Negative); Blood Urine Trace (Negative); Glucose Urine UA Negative (Normal); Ketones Urine Negative (Negative); Leukocyte Esterase Urine Negative (Negative); Nitrate Urine Negative (Negative); Protein Urine 3+ (Negative); Specific Gravity, Urine 1.021 (1.005-1.030); Urine Appearance Clear (CLEAR); Urine Color Yellow (Yellow); Urobilinogen Urine 0.2 mg/dL (Negative); pH Urine 5.5 (5-7)
[2024-08-10 09:49] LABS: Add Urine Microscopic? YES; Bacteria Urine None Seen /hpf; Hyaline Casts Urine 4.95 /lpf; RBC Urine 0-2 /hpf (0-2); Squamous Epithelial Cell Urine 0-5 /hpf (0-5); WBC Urine 0-5 /hpf (0-5)
[2024-08-10 09:53] LABS: Amphetamines Screen Urine Negative (Negative); Barbiturates Screen Urine Negative (Negative); Benzodiazepines Screen Urine Negative (Negative); Cocaine Screen Urine Negative (Negative); Opiate Screen Urine Negative (Negative); PCP Screen Urine Negative (Negative); THC Screen Urine Negative (Negative)
[2024-08-10] MEDS: etomidate 2 mg/mL INJ SDV 10 mL 10 MG IVP ×2 (10:06→12:40)
[2024-08-10] MEDS: rocuronium 10 mg/mL INJ 5mL 70 MG IVP ×2 (10:09→10:11)
[2024-08-10] MEDS: iohexol 350 mg/mL 500 mL Btl (per mL) IV (10:36)
--- NOTE | 2024-08-10 10:37 | PC.NURSE ---
returned from CT @[facility]. pt transported by computer technical support specialist, senior manufacturing technician, this nurse, respiratory.
--- NOTE | 2024-08-10 10:44 | W.ED.NEUROSD ---
HPI - Neuro Symptoms/Deficit General: Chief Complaint: Neuro Symptoms/Deficit Stated Complaint: STROKE ALERT Time Seen by Provider: 08/10/24 08:46 History of Present Illness: 64-year-old male presents to the ER chief complaint of unresponsiveness by his patient's last known was sometime last night prior to bed upon the waking up this morning she was noted her spouse was totally unresponsive in which EMS was contacted patient underwent rapid sequence intubation as patient was able to guard his airway which he had sonorous respirations with no purposeful movement. Patient presents to the ER as a level 2 stroke activation. Patient does have a history of hypertension which remainder history is quite limited. Patient presents to the ER for further assessment and management. Per EMS patient does not appear to have sustained a recent fall in which no seizure activity was witnessed by them prior to intubating the patient or as witnessed by the . Related Data Home Medications Medication Instructions Recorded Confirmed doxycycline hyclate 100 mg tablet 100 mg PO BID 08/10/24 08/10/24 prednisone 20 mg tablet 20 mg PO BID 08/10/24 08/10/24 Previous Rx's Medication Instructions Recorded aspirin 81 mg tablet,delayed 81 mg PO DAILY #30 tabs 10/13/23 release amlodipine 5 mg tablet 5 mg PO DAILY #30 tabs 11/23/23 levothyroxine 150 mcg tablet 150 mcg PO DAILY #30 tabs 12/22/23 Allergies Allergy/AdvReac Type Severity Reaction Status Date / Time No Known Allergies Allergy Verified 01/06/23 06:50 Review of Systems General: Reports: ROS unobtainable due to endotracheal tube, ROS unobtainable due to medical condition and ROS unobtainable due to mental status [facility] ED PFSH: Medical History Hyperlipidemia Thyroid nodule Heart murmur Surgical History History of appendectomy Family History Other CAD (coronary artery disease) Diabetes Social History Smoking and tobacco/nicotine status: never used tobacco/nicotine Alcohol intake: current Substance/Drug Use: never Physical Exam Const: COMMON NORMALS: no acute distress; negative for patient oriented x3 (Totally unresponsive GCS is unknown today's less than a no purposeful movem) and negative for healthy appearing HENMT: COMMON NORMALS: normocephalic and atraumatic HEAD & SCALP: normocephalic and atraumatic Eye: COMMON NORMALS: Equal, round and reactive pupils present and EOMs intact bilaterally PUPIL: Yes Equal, round and reactive pupils present Neck/C-Spine: COMMON NORMALS: full ROM, supple and no JVD Lymph: LYMPHATIC: no lymphadenopathy noted Chest: COMMONS NORMALS: normal inspection of the chest and normal palpation of entire chest wall Resp: COMMON NORMALS: normal respiratory effort, No retractions and clear to auscultation bilaterally EFFORT & INSPECTION: Yes able to speak in complete sentences and Yes symmetric chest movement AUSCULTATION: clear to auscultation bilaterally Cardio: COMMON NORMALS: no JVD, regular rate and regular rhythm RATE: regular rate RHYTHM: regular rhythm GI: COMMON NORMALS: Normal to inspection, nondistended, normoactive bowel sounds present, Soft to palpation and non-tender INSPECTION: Yes normal to inspection PALPATION: Yes Soft to palpation : COMMON NORMALS: Yes no CVA tenderness BLADDER/KIDNEY EXAM: Yes no CVA tenderness Back/Pelvis: COMMON NORMALS: no CVA tenderness Extremity: COMMON NORMALS: normal to inspection and full ROM Neuro: COMMON NORMALS: CN's II-XII intact bilaterally, moves all extremities and no focal motor deficits; negative for patient oriented x3 (Totally unresponsive GCS is unknown today's less than a no purposeful movem) Psych: COMMON NORMALS: mental status grossly normal, Normal thought process present, cooperative and normal affect THOUGHT PROCESS: Normal thought process present Skin: COMMON NORMALS: no rashes or lesions noted GENERAL SKIN EXAM: no rashes or lesions noted Course Vital Signs: Vital signs: Vital Signs Temperature 98.4 F 08/10/24 08:42 Pulse Rate 76 08/10/24 12:15 Respiratory Rate 17 08/10/24 12:15 Blood Pressure 141/86 08/10/24 12:15 Pulse Oximetry 100 08/10/24 12:15 Oxygen Delivery Me thod Mechanical Ventil ation 08/10/24 10:45 Fraction of Inspir ed Oxygen 100 08/10/24 10:38 MDM - Neuro Symptoms/Deficit Medical Decision Making Due to patient already being intubated as well as rapid sequence intubation with paralytic initial NIH in the ER was unobtainable due to his symptoms that have been ongoing less than 24 hours patient was noted to be a level 2 stroke activation upon initial arrival patient was found to be quite hypertensive blood pressures were 220s over 110s patient was provided additional dose of etomidate as well as rocuronium as he was biting on the tube patient CT imaging of the head without contrast did reveal the posterior circulation stroke patient will need to be admitted to the intensive care unit for further evaluation management still currently waiting on CT angiogram to result. Patient blood pressure is improved she is currently on propofol for sedation. Will continue to follow. Patient CT angiogram revealed that the patient has concerning findings of basilar right proximal thrombosed partially thrombosed artery with a little collateral flow noted to the SALES AND CATERING COORDINATOR spoke to the assisted living coordinator he was recommended to contact [facility] for transfer for possible possible interventional radiology in which the stroke stapler machine there was discussed and spoke to which we will be clouding the films over to them for eval in which there is concerns as patient is already having some ischemic changes and infarction noted on the CT of the head without whether or not any additional intervention is going to be available. Will continue to follow patient was granted acceptance by Dr. Arredondo at [facility] patient be going by air per Dr. Arredondo's recommendations to hold Plavix at this time and to start the patient on mannitol for concerns of diffuse cerebral edema resulting in a herniation event. Patient's family was updated in regards to the severity of the patients condition . Lab Data 08/10/24 08:46 08/10/24 08:[address] 08/10/24 09:05 IMPRESSION: 1. No evidence of intracranial hemorrhage 2. Suspected subacute RIGHT SALES AND CATERING COORDINATOR territory infarct involving the RIGHT parasagittal occipital lobe extending into the temporal occipital junction posteriorly. 3. Moderate small vessel changes with mild parenchymal volume loss. 4. Numerous small chronic lacunar infarcts in the basal ganglia and love radiata. 5. RIGHT maxillary sinusitis. Ethmoid sinusitis. Notified Heriberto Sommers at 08/10/2024 9:17 AM. Chest X-Ray 08/10/24 09:26 IMPRESSION: ETT and NG tube in satisfactory position. Head/Neck CTA 08/10/24 09:42 IMPRESSION: 1. 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 No flow in the proximal basilar artery. Small amount of flow in the distal basilar tip with persistent but decreased flow in the SALES AND CATERING COORDINATOR territory visualized. Decreased vascularity in the RIGHT greater than LEFT SALES AND CATERING COORDINATOR territory 2. Subacute evolving RIGHT SALES AND CATERING COORDINATOR territory infarct as seen on the noncontrast head CT. Possible evolving subacute LEFT distal SALES AND CATERING COORDINATOR territory infarct although equivocal. 3. No other significant changes. 4. No significant cervical ICA stenosis. 5. LEFT dominant vertebral artery. Both vertebral arteries are patent to the basilar junction. 6. ETT. Notified Heriberto Sommers at 08/10/2024 11:07 AM. Laboratory Results WBC 14.84 10^3/uL (3.29-11.43) H 08/10/24 08:46 RBC 5.40 10^6/uL (3.85-5.65) 08/10/24 08:46 Hgb 15.70 g/dL (11.27-16.99) 08/10/24 08:46 Hct 45.7 % (37-53) 08/10/24 08:46 MCV 84.6 fl (82-101) 08/10/24 08:46 MCH 29.1 pg (27-33) 08/10/24 08:46 MCHC 34.4 g/dL (30-55) 08/10/24 08:46 RDW 11.9 % (12.1-15.1) L 08/10/24 08:46 Plt Count 299 10^3/cmm (157-399) 08/10/24 08:46 MPV 9.8 fL (7.4-10.4) 08/10/24 08:46 Neut % (Auto) 85.1 % 08/10/24 08:46 Lymph % (Auto) 10.0 % 08/10/24 08:46 [place] % (Auto) 4.1 % 08/10/24 08:46 Eos % (Auto) 0.1 % 08/10/24 08:46 Baso % (Auto) 0.1 % 08/10/24 08:46 Neut # (Auto) 12.62 10^3/uL (1.8-7.7) H 08/10/24 08:46 Lymph # (Auto) 1.5 10^3/uL (0.8-4.8) 08/10/24 08:46 [place] # (Auto) 0.6 10^3/uL (0.2-0.9) 08/10/24 08:46 Eos # (Auto) 0.0 10^3/uL (0.0-0.8) 08/10/24 08:46 Baso # (Auto) 0.0 10^3/uL (0.0-0.1) 08/10/24 08:46 Nucleated RBC % (auto) 0 % 08/10/24 08:46 Nucleated RBCs # 0.0 /100WBC 08/10/24 08:46 PT 13.10 SECONDS (12.1-14.9) 08/10/24 08:46 INR 0.92 (0.8-1.2) 08/10/24 08:46 APTT 28.0 SECONDS (23.9-36.7) 08/10/24 08:46 Sodium 138 mmol/L (136-145) 08/10/24 08:46 Potassium 4.2 mmol/L (3.5-5.1) 08/10/24 08:46 Chloride 105 mmol/L (98-107) 08/10/24 08:46 Carbon Dioxide 21 mmol/L (22-29) L 08/10/24 08:46 Anion Gap 16.2 (5-19) 08/10/24 08:46 BUN 15 mg/dL (8-23) 08/10/24 08:46 Creatinine 0.9 mg/dL (0.7-1.2) 08/10/24 08:46 GFR Calculation 85.0 mL/min (90-130) L 08/10/24 08:46 Glucose 130 mg/dL (65-115) H 08/10/24 08:46 POC Glucose 178 mg/dL (70-110) H 08/10/24 08:51 Calculated Osmolality 289 mOsm/kg (285-295) 08/10/24 08:46 Calcium 9.4 mg/dL (8.5-10.5) 08/10/24 08:46 Total Bilirubin 0.5 mg/dL (0.15-1.2) 08/10/24 08:46 AST 21 U/L (0-40) 08/10/24 08:46 ALT 43 U/L (0-41) H 08/10/24 08:46 Alkaline Phosphatase 113 U/L (40-130) 08/10/24 08:46 Total Protein 7.5 g/dL (6.6-8.7) 08/10/24 08:46 Albumin 4.4 g/dL (3.5-5.2) 08/10/24 08:46 Globulin 3.1 g/dL (1.3-4.6) 08/10/24 08:46 Urine Color Yellow (Yellow) 08/10/24 09:12 Urine Appearance Clear (CLEAR) 08/10/24 09:12 Urine pH 5.5 (5-7) 08/10/24 09:12 Ur Specific [place] 1.021 (1.005-1.030) 08/10/24 09:12 Urine Protein 3+ (Negative) A 08/10/24 09:12 Urine Glucose (UA) Negative (Normal) 08/10/24 09:12 Urine Ketones Negative (Negative) 08/10/24 09:12 Urine Blood Trace (Negative) A 08/10/24 09:12 Urine Nitrate Negative (Negative) 08/10/24 09:12 Urine Bilirubin Negative (Negative) 08/10/24 09:12 Urine Urobilinogen 0.2 mg/dL (Negative) 08/10/24 09:12 Ur Leukocyte Esterase Negative (Negative) 08/10/24 09:12 Urine RBC 0-2 /hpf (0-2) 08/10/24 09:12 Urine WBC 0-5 /hpf (0-5) 08/10/24 09:12 Ur Squamous Epith Cells 0-5 /hpf (0-5) 08/10/24 09:12 Amorphous Sediment Not Reportable 08/10/24 09:12 Urine Bacteria None seen /hpf (NONE) 08/10/24 09:12 Hyaline Casts 4.95 /lpf 08/10/24 09:12 Urine Opiates Screen Negative ng/mL (Negative) 08/10/24 09:12 Ur Barbiturates Screen Negative ng/mL (Negative) 08/10/24 09:12 Ur Phencyclidine Scrn Negative ng/mL (Negative) 08/10/24 09:12 Ur Amphetamines Screen Negative ng/mL (Negative) 08/10/24 09:12 U Benzodiazepines Scrn Negative ng/mL (Negative) 08/10/24 09:12 Urine Cocaine Screen Negative ng/mL (Negative) 08/10/24 09:12 U Marijuana (THC) Screen Negative ng/mL (Negative) 08/10/24 09:12 All radiology interpretation(s) finalized by discharge Discharge Plan Discharge Patient Disposition: Xfer Short-Term Hosp Clinical Impression: Acute CVA (cerebrovascular accident) Condition: Stable Referrals: Rocky Hernandez MD [Primary Care Provider] - Coding Level of Care Code ED Quick Service Technician for Shahana Todd
--- NOTE | 2024-08-10 11:02 | PC.NURSE ---
per Dr. Sommers b/p parameters of 140 systolic and 200/110
--- NOTE | 2024-08-10 12:40 | PC.NURSE ---
800mL urine output @1240
--- NOTE | 2024-08-10 12:41 | PC.NURSE ---
report called to Gloria Saunders to Cecelia Rucker at [phone]; room #5396
--- NOTE | 2024-08-10 12:41 | PC.NURSE ---
pt attempting to move, biting ET tube, Dr. Sommers notified, verbal orders for 10mg Etomidate.
--- NOTE | 2024-08-10 13:04 | PC.NURSE ---
Addendum entered by Delores White RN 08/10/24 14:00: [facility] team left Propofol in room, see note for waste instructions Original Note: sent extra bottle of Propofol 1,000mg in 100mL with [facility] d/t insufficient amount for transfer.
--- NOTE | 2024-08-10 13:06 | PC.NURSE ---
report given to [employer] [facility] crew, Ryan Rangel family present during report.
--- NOTE | 2024-08-10 13:32 | PC.NURSE ---
[facility] left approx @1325
== END 2024-08-10 13:34 | disposition short-term general hospital (02) ==
PROVIDERS: Emergency Provider Emergency Medicine; PCP Family Medicine
DX: I63.9 Cerebral infarction, unspecified (principal); E78.5 Hyperlipidemia, unspecified
CPT/HCPCS: 36416; 51702; 70450; 70496; 70498; 71045; 80053; 80306; 81001; 82962; 85025; 85610; 85730; 87070; 87205; 93005; 94002; 94799; 96360; 96375; 99291; 99292; J2704; J3490; J7040; J7799